=== PATIENT | male | born 1950 | race Caucasian/White ===

== ENCOUNTER 2017-11-01 18:40 | Inpatient (IN) | payer OTHER ==
[~2017-11-01] VITALS: Ht 170.2 cm; Wt 96.6 kg
[2017-11-01 18:41] VITALS: BP 136/73
[2017-11-01] MEDS ORDERED: IPRATROPIU0.2 MG/1 M INH (18:45)
[2017-11-01] MEDS ORDERED: NOVOLOG100 UNIT/1 SUBQ (18:46)
[2017-11-01] MEDS ORDERED: LANTIS SUBQ (18:46)
[2017-11-01] MEDS ORDERED: TOPROL XL25 MG PO (18:46)
[2017-11-01] MEDS ORDERED: ZESTRIL5 MG PO (18:46)
[2017-11-01] MEDS ORDERED: LASIX 40 MG TAB40 M2 PO (18:46)
[2017-11-01] MEDS ORDERED: PLAVIX 75 MG TA75 M1 PO (18:46)
[2017-11-01] MEDS ORDERED: COMBIVENT RESPIM4 GM INH (18:47)
[2017-11-01] MEDS ORDERED: SPIRIVA INH (18:47)
[2017-11-01] MEDS ORDERED: FLOVENT HFA 4444 MCG INH (18:47)
[2017-11-01 19:36] LABS: HEMATOCRIT 40.3 % (42.0-52.0); HEMOGLOBIN 13.6 gm/dL (14.0-18.0); MCH 29.9 pg (26.0-34.0); MCHC 33.7 g/dL (28.0-37.0); MCV 88.8 fL (80.0-100.0); MPV 7.6 fl. (7.2-11.1); NUCLEATED RBCS 0 /100WBC; PLATELET COUNT* 260 thou/uL (150-400); RBC 4.54 mil/uL (4.50-6.00); RDW-CV 14.3 % (10.5-14.5); WBC 18.2 thou/uL (4.0-11.0)
[2017-11-01 20:03] LABS: ABSOLUTE LYMPHOCYTES 0.5 thou/uL (0.8-5.3); ABSOLUTE MONOCYTES 0.4 thou/uL (0.0-1.2); ABSOLUTE NEUTROPHILS 17.3 thou/uL (1.6-8.1); PLATELET ESTIMATE ADEQUATE
[2017-11-01 20:16] LABS: CREATININE 1.8 mg/dL (0.6-1.3); POTASSIUM 4.1 mmol/L (3.5-5.1)
[2017-11-01 20:17] LABS: CALCIUM 8.4 mg/dL (8.5-10.1)
[2017-11-01 20:23] LABS: TOTAL BILIRUBIN 0.8 mg/dL (<0.1-1.0)
[2017-11-01 20:24] LABS: ALBUMIN 3.1 g/dL (3.4-5.0); TOTAL PROTEIN 6.8 g/dL (6.4-8.2)
[2017-11-01 20:43] LABS: APTT 32.9 Seconds (25.0-31.3); PROTIME 10.2 Seconds (9.20-11.50)
[2017-11-01 23:35] VITALS: BP 144/75
[2017-11-02 03:30] VITALS: BP 167/82
[2017-11-02 10:30] LABS: CALCIUM 8.1 mg/dL (8.5-10.1); CREATININE 1.7 mg/dL (0.6-1.3); MAGNESIUM 1.6 mg/dL (1.8-2.4); POTASSIUM 3.7 mmol/L (3.5-5.1)
[2017-11-02 10:40] LABS: HEMATOCRIT 37.6 % (42.0-52.0); HEMOGLOBIN 12.7 gm/dL (14.0-18.0); MCH 30.2 pg (26.0-34.0); MCHC 33.8 g/dL (28.0-37.0); MCV 89.4 fL (80.0-100.0); MPV 7.5 fl. (7.2-11.1); NUCLEATED RBCS 0 /100WBC; PLATELET COUNT* 242 thou/uL (150-400); RDW-CV 14.8 % (10.5-14.5); WBC 16.8 thou/uL (4.0-11.0)
--- NOTE | 2017-11-02 10:58 | EKG ---
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: maximo : 1950 Requested By: Irma Elder Order Number: [id number] MD: Calos Hutchinson Measurements Intervals [place] Rate: 112 P: 118 VA: 177 QRS: -22 QRSD: 101 T: 87 QT: 360 QTc: 492 Interpretive Statements Sinus tachycardia Low voltage, extremity and precordial leads Anteroseptal infarct, old Nonspecific T abnormalities, lateral leads No previous ECG available for comparison Electronically Signed On 11-02-2017 10:58:11 CDT by Calos Hutchinson [email or web address] <ELECTRONICALLY SIGNED> By: Calos Hutchinson MD, [facility] 11/02/17 1058 35 35 Calos Hutchinson MD, [facility] /EPI
[2017-11-02 11:08] LABS: ABSOLUTE MONOCYTES 0.2 thou/uL (0.0-1.2); ABSOLUTE NEUTROPHILS 15.6 thou/uL (1.6-8.1); METAMYELOCYTES 1 %; PLATELET ESTIMATE ADEQUATE
[2017-11-02 15:00] VITALS: BP 140/71
[2017-11-02 15:08] VITALS: BP 137/69
[2017-11-03 02:11] LABS: GLYCOHEMOGLOBIN (HGB A1C) 9.1 % (4.8-5.6)
[2017-11-03 05:04] LABS: HEMATOCRIT 36.5 % (42.0-52.0); HEMOGLOBIN 12.2 gm/dL (14.0-18.0); MCH 30.4 pg (26.0-34.0); MCHC 33.4 g/dL (28.0-37.0); MCV 91.1 fL (80.0-100.0); MPV 8.1 fl. (7.2-11.1); RBC 4.01 mil/uL (4.50-6.00); RDW-CV 14.3 % (10.5-14.5)
[2017-11-03 05:23] LABS: CALCIUM 8.1 mg/dL (8.5-10.1); CREATININE 1.8 mg/dL (0.6-1.3); MAGNESIUM 1.8 mg/dL (1.8-2.4); POTASSIUM 3.8 mmol/L (3.5-5.1)
[2017-11-03 08:05] VITALS: BP 128/75
[2017-11-04] VITALS: BP 176/91
[2017-11-04 02:46] LABS: HEMATOCRIT 35.7 % (42.0-52.0); MCH 30.6 pg (26.0-34.0); MCHC 33.7 g/dL (28.0-37.0); MCV 90.9 fL (80.0-100.0); MPV 8.1 fl. (7.2-11.1); RBC 3.93 mil/uL (4.50-6.00); RDW-CV 14.2 % (10.5-14.5); WBC 10.1 thou/uL (4.0-11.0)
[2017-11-04 02:58] LABS: ALBUMIN 2.3 g/dL (3.4-5.0); CALCIUM 7.8 mg/dL (8.5-10.1); CREATININE 2.1 mg/dL (0.6-1.3); POTASSIUM 3.5 mmol/L (3.5-5.1); TOTAL BILIRUBIN 0.3 mg/dL (<0.1-1.0); TOTAL PROTEIN 5.4 g/dL (6.4-8.2)
[2017-11-04 07:30] VITALS: BP 118/66
[2017-11-04 15:48] VITALS: BP 145/100
[2017-11-04 19:55] VITALS: BP 118/30
[2017-11-05 04:11] LABS: ABSOLUTE EOSINOPHILS 0.1 thou/uL (0.0-0.7); ABSOLUTE LYMPHOCYTES 1.1 thou/uL (0.8-5.3); ABSOLUTE MONOCYTES 0.6 thou/uL (0.0-1.2); ABSOLUTE NEUTROPHILS 5.5 thou/uL (1.6-8.1); BASOPHILS 0.6 %; EOSINOPHILS 1.1 %; HEMATOCRIT 33.1 % (42.0-52.0); HEMOGLOBIN 11.3 gm/dL (14.0-18.0); LYMPHOCYTES 14.9 %; MCH 30.8 pg (26.0-34.0); MCHC 34.2 g/dL (28.0-37.0); MONOCYTES 7.6 %; MPV 7.8 fl. (7.2-11.1); NUCLEATED RBCS 0 /100WBC; PLATELET COUNT* 276 thou/uL (150-400); POLYS 75.8 %; RBC 3.68 mil/uL (4.50-6.00); RDW-CV 14.3 % (10.5-14.5); WBC 7.3 thou/uL (4.0-11.0)
[2017-11-05 04:42] LABS: CALCIUM 7.6 mg/dL (8.5-10.1); CREATININE 1.9 mg/dL (0.6-1.3); POTASSIUM 3.6 mmol/L (3.5-5.1)
[2017-11-05 07:35] VITALS: BP 133/89; BP 172/55
--- NOTE | 2017-11-05 07:57 | CON ---
[address] [address] CONSULTATION Name: LAURIE MUIR JR Room: [address] IN .R.#: [id number] Admission: 11/01/17 Attend Phys: Hesham Dockery MD Discharge: Date of : 46 Report #: [id number] THIS REPORT FOR: //name// CC: [facility] physician/PCP Hesham Dockery DATE OF SERVICE: 11/02/2017 INFECTIOUS DISEASE CONSULTATION ATTENDING PHYSICIAN: Hesham Dockery M.D. REASON FOR EVALUATION: Left upper extremity skin and soft tissue infection with severe cellulitis. HISTORY OF PRESENT ILLNESS: Chart reviewed, patient examined. This is a 67-year-old gentleman, with diabetes mellitus, who without antecedent injury noted over the course of the last 2 weeks, had increasing inflammation, particularly swelling, redness, pain associated with his left upper extremity. He does admit to some low-grade temperature elevations, some chills, which was confirmed during his stay in the Emergency Room. He has had some mild anorexia, some loose stools. Blood sugars have been markedly elevated. ALLERGIES: TO STATINS, CODEINE, METFORMIN, ROSIGLITAZONE, ROSUVASTATIN AND SITAGLIPTIN. MEDICATIONS: Include insulin glargine, insulin lispro, furosemide, budesonide, ipratropium inhaler, morphine sulfate, vancomycin, Zosyn, clopidogrel, lisinopril. PAST MEDICAL HISTORY: Diabetes mellitus, some COPD with emphysematous component, history of chronic back pain, venous stasis insufficiency. SOCIAL HISTORY: Smokes a pack a day. No ethanol. FAMILY HISTORY: Noncontributory. REVIEW OF SYSTEMS: As above. PHYSICAL EXAMINATION: GENERAL: He is somewhat lethargic. He is in moderate distress secondary to the pain. He is very protective of his arm, no particular movement, appears somewhat chronically ill. VITAL SIGNS: Temperature 99.4, T-max more recently 99.1; pulse 99, respirations 20, blood pressure is 137/69. SKIN: Warm, [place] [address] CONSULTATION Name: LAURIE MUIR JR Room: [address] IN [facility]#: [id number] Admission: 11/01/17 Attend Phys: Hesham Dockery MD Discharge: Date of : 46 Report #: [id number] HEENT: Unremarkable. LUNGS: Scattered coarse breath sounds, I think it is chronic. HEART: Tachycardic, regular. I do not appreciate a murmur. ABDOMEN: Soft, nontender. EXTREMITIES: Left upper extremity has marked inflammatory changes, particularly distally. He is exquisitely tender to even light touch over the dorsum of the hand. There are some superficial abrasion lesions. GENITOURINARY: Deferred. RECTAL: Deferred. LABORATORY DATA: Chest x-ray, mild chronic lung changes, no acute process. Troponin less than 0.06. Lactic acid of 2.9 initially, repeat was 1.8. CBC: White count 18.2, H and H 13.6 and 40.3, platelets of 260, does have lymphocytopenia. Electrolytes: Sodium 134, potassium 4.1, chloride 99, bicarbonate is 25, anion gap of 10, BUN and creatinine 21 and 1.8, glucose of 384 on that draw. LFTs unremarkable. Albumin of 3.1, total protein 6.8, estimated GFR of 38. PT of 10.2, INR of 1.0. Blood cultures sterile thus far. TSH 2.598. Repeat white count of 16.8. ASSESSMENT: Left upper extremity skin and soft tissue infection with cellulitis. These are new marked changes noted, presumably skin and soft tissue outside the end type progression, presume staph or strep etiology. We will continue empiric therapy at this point. At some point, would like to add some compression at this point probably limited to elevation. We will await results. May need imaging. If he can localize this, perhaps will have a drainable focus of infection at some point. <ELECTRONICALLY SIGNED> By: Baltazar Holland MD 11/05/17 0757 1414 0003Johse Holland MD /nt
[2017-11-05 20:55] VITALS: BP 143/49
[2017-11-06 06:03] LABS: CALCIUM 7.8 mg/dL (8.5-10.1); CREATININE 1.7 mg/dL (0.6-1.3); MAGNESIUM 1.9 mg/dL (1.8-2.4); POTASSIUM 4.1 mmol/L (3.5-5.1)
[2017-11-06 07:30] VITALS: BP 204/99
[2017-11-06] MEDS ORDERED: LEVAQUIN 500 M500 M1 PO (11:29)
[2017-11-06 14:14] VITALS: BP 204/99
== END 2017-11-06 15:32 | disposition home or self-care (01) | DRG 871 ==
LOC: M.ERS 18:40 → M.TBA-ER 20:39 → M.3W 11-02 15:22
PROVIDERS: Family Medicine; Internal Medicine Infectious Disease; Nurse Practitioner Family; ADMIT Internal Medicine
PROC: 02HV33Z Insertion of Infusion Device into Superior Vena Cava, Percutaneous Approach (ICD-10-PCS; principal; 2017-11-03)
DX: A41.9 Sepsis, unspecified organism (principal); N17.0 Acute kidney failure with tubular necrosis; L03.114 Cellulitis of left upper limb; J96.11 Chronic respiratory failure with hypoxia; E44.1 Mild protein-calorie malnutrition; J44.9 Chronic obstructive pulmonary disease, unspecified; F17.210 Nicotine dependence, cigarettes, uncomplicated; N18.3 Chronic kidney disease, stage 3 (moderate); E11.22 Type 2 diabetes mellitus with diabetic chronic kidney disease; R13.10 Dysphagia, unspecified; E66.9 Obesity, unspecified; Z68.33 Body mass index [BMI] 33.0-33.9, adult; Z91.14 Patient's other noncompliance with medication regimen; Z99.81 Dependence on supplemental oxygen; Z79.4 Long term (current) use of insulin; Z79.02 Long term (current) use of antithrombotics/antiplatelets; Z79.51 Long term (current) use of inhaled steroids; Z79.899 Other long term (current) drug therapy; Z88.5 Allergy status to narcotic agent; Z88.8 Allergy status to other drugs, medicaments and biological substances

== ENCOUNTER 2017-11-15 16:59 | Inpatient (IN) | payer OTHER ==
[~2017-11-15] VITALS: Ht 170.2 cm; Wt 99.8 kg
[~2017-11-15 16:59] MED LIST: COMBIVENT RESPIM4 GM INH; FLOVENT HFA 4444 MCG INH; IPRATROPIU0.2 MG/1 M INH; LANTIS SUBQ; LASIX 40 MG TAB40 M2 PO; LEVAQUIN 500 M500 M1 PO; NOVOLOG100 UNIT/1 SUBQ; PLAVIX 75 MG TA75 M1 PO; SPIRIVA INH; TOPROL XL25 MG PO; ZESTRIL5 MG PO
[2017-11-15 17:06] VITALS: BP 141/81
[2017-11-15] MEDS ORDERED: COMBIVENT INH (17:25)
[2017-11-15] MEDS ORDERED: ZETIA10 MG PO (17:29)
[2017-11-15] MEDS ORDERED: NITROGLYCERIN0.4 MG SUBLING (17:32)
[2017-11-15] MEDS ORDERED: ADVAIR 500-501 EACH INH (17:32)
[2017-11-15 18:05] LABS: ANION GAP 8 mmol/L (7-16); BUN 39 mg/dL (7-18); CALCIUM 8.7 mg/dL (8.5-10.1); CHLORIDE 101 mmol/L (98-107); CO2 26 mmol/L (21-32); CREATININE 2.9 mg/dL (0.6-1.3); GLUCOSE 329 mg/dL (70-99); POTASSIUM 4.2 mmol/L (3.5-5.1); SODIUM 135 mmol/L (136-145)
[2017-11-15 18:16] LABS: ALBUMIN 3.1 g/dL (3.4-5.0); ALKALINE PHOSPHATASE 94 U/L (46-116); NT-PRO BRAIN NAT PEPTIDE 2082 pg/mL (<300); SGOT 17 U/L (15-37); SGPT 17 U/L (30-65); TOTAL BILIRUBIN 0.1 mg/dL (<0.1-1.0); TOTAL PROTEIN 6.7 g/dL (6.4-8.2); TROPONIN-I LEVEL <0.06 ng/mL (<0.06)
[2017-11-15 18:47] LABS: URINE BILIRUBIN NEGATIVE (Negative); URINE BLOOD NEGATIVE (Negative); URINE CLARITY CLEAR; URINE COLOR YELLOW; URINE GLUCOSE-RANDOM 1+ (Negative); URINE KETONES NEGATIVE (Negative); URINE LEUKOCYTES-REFLEX NEGATIVE (Negative); URINE NITRITE-REFLEX NEGATIVE (Negative); URINE PROTEIN NEGATIVE (Negative); URINE SPECIFIC GRAVITY 1.015 (1.005-1.030); URINE UROBILINOGEN 0.2 E.U./dl (0.2-1.0)
[2017-11-15 19:00] LABS: ABSOLUTE BASOPHILS 0.1 thou/uL (0.0-0.2); ABSOLUTE EOSINOPHILS 0.3 thou/uL (0.0-0.7); ABSOLUTE LYMPHOCYTES 1.8 thou/uL (0.8-5.3); ABSOLUTE MONOCYTES 0.8 thou/uL (0.0-1.2); ABSOLUTE NEUTROPHILS 9.2 thou/uL (1.6-8.1); BASOPHILS 0.9 %; EOSINOPHILS 2.5 %; HEMOGLOBIN 12.5 gm/dL (14.0-18.0); LYMPHOCYTES 14.6 %; MCH 30.1 pg (26.0-34.0); MCHC 33.7 g/dL (28.0-37.0); MCV 89.2 fL (80.0-100.0); MONOCYTES 6.2 %; MPV 7.6 fl. (7.2-11.1); NUCLEATED RBCS 0 /100WBC; PLATELET COUNT* 392 thou/uL (150-400); POLYS 75.8 %; RBC 4.15 mil/uL (4.50-6.00); RDW-CV 13.8 % (10.5-14.5); WBC 12.2 thou/uL (4.0-11.0)
[2017-11-15 19:06] LABS: APTT 26.1 Seconds (25.0-31.3); PROTIME 9.9 Seconds (9.20-11.50)
[2017-11-15 19:32] VITALS: BP 124/66
[2017-11-15 20:34] VITALS: BP 112/68
[2017-11-15 23:35] VITALS: BP 97/50
[2017-11-16 03:53] VITALS: BP 122/77
[2017-11-16 04:54] LABS: ANION GAP 6 mmol/L (7-16); BUN 41 mg/dL (7-18); CALCIUM 9.2 mg/dL (8.5-10.1); CHLORIDE 103 mmol/L (98-107); CO2 31 mmol/L (21-32); CREATININE 2.9 mg/dL (0.6-1.3); GLUCOSE 216 mg/dL (70-99); POTASSIUM 4.4 mmol/L (3.5-5.1); SODIUM 140 mmol/L (136-145); TROPONIN-I LEVEL <0.06 ng/mL (<0.06)
[2017-11-16 08:00] VITALS: BP 122/69
--- NOTE | 2017-11-16 10:55 | EKG ---
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 RIGGS : 1950 Requested By: Andrae Greco Order Number: [id number] MD: Tor Miller Measurements Intervals [place] Rate: 99 P: 41 GA: 184 QRS: -8 QRSD: 109 T: 119 QT: 401 QTc: 515 Interpretive Statements Sinus rhythm Low voltage, extremity and precordial leads Consider anterior infarct Nonspecific T abnormalities, lateral leads Prolonged QT interval Compared to ECG 11/01/2017 19:36:50 Prolonged QT interval now present Sinus tachycardia no longer present Myocardial infarct finding still present T-wave abnormality still present Electronically Signed On 11-16-2017 10:54:51 CDT by Tor Miller [email or web address] <ELECTRONICALLY SIGNED> By: Tor Miller MD, [facility] 11/16/17 1054 1715 1715 Tor Miller MD, [facility] /EPI
--- NOTE | 2017-11-16 10:58 | EKG ---
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: : 1950 Requested By: Pascual Valladares Order Number: [id number] MD: Tor Miller Measurements Intervals [place] Rate: 85 P: 55 DE: 224 QRS: -24 QRSD: 102 T: 130 QT: 392 QTc: 467 Interpretive Statements Sinus rhythm Prolonged DE interval Low voltage, extremity and precordial leads Consider anterior infarct Nonspecific T abnormalities, lateral leads Baseline wander in lead(s) V4 Compared to ECG 11/01/2017 19:36:50 First degree AV block now present Sinus tachycardia no longer present Myocardial infarct finding still present T-wave abnormality still present Electronically Signed On 11-16-2017 10:58:07 CDT by Tor Miller [email or web address] <ELECTRONICALLY SIGNED> By: Tor Miller MD, [facility] 11/16/17 1058 Tor Miller MD, [facility] /EPI
[2017-11-16 12:00] VITALS: BP 120/56
[2017-11-16 16:00] VITALS: BP 137/66
[2017-11-16 20:00] VITALS: BP 118/63
[2017-11-17] VITALS: BP 124/63
[2017-11-17 03:41] VITALS: BP 141/74
[2017-11-17 06:00] LABS: HEMATOCRIT 31.6 % (42.0-52.0); HEMOGLOBIN 10.7 gm/dL (14.0-18.0); MCH 30.5 pg (26.0-34.0); MCHC 33.8 g/dL (28.0-37.0); MPV 7.8 fl. (7.2-11.1); RBC 3.51 mil/uL (4.50-6.00); RDW-CV 13.8 % (10.5-14.5); WBC 8.8 thou/uL (4.0-11.0)
[2017-11-17 06:07] LABS: CALCIUM 8.3 mg/dL (8.5-10.1); CREATININE 2.5 mg/dL (0.6-1.3); MAGNESIUM 1.9 mg/dL (1.8-2.4); POTASSIUM 3.3 mmol/L (3.5-5.1)
[2017-11-17 08:15] VITALS: BP 116/59
[2017-11-17 12:16] VITALS: BP 126/64
[2017-11-17 16:02] VITALS: BP 122/65
[2017-11-17 20:00] VITALS: BP 126/68
[2017-11-18] VITALS (7 sets, daily range): BP systolic 96–137; BP diastolic 45–68
[2017-11-18 02:08] LABS: IgA 109 mg/dL (61-437); IgG 481 mg/dL (700-1600); IgM 275 mg/dL (20-172)
[2017-11-18 05:09] LABS: HEMATOCRIT 30.4 % (42.0-52.0); HEMOGLOBIN 10.6 gm/dL (14.0-18.0); MCHC 34.7 g/dL (28.0-37.0); MCV 89.3 fL (80.0-100.0); MPV 7.8 fl. (7.2-11.1); RBC 3.41 mil/uL (4.50-6.00); RDW-CV 13.7 % (10.5-14.5); WBC 8.3 thou/uL (4.0-11.0)
[2017-11-18 05:28] LABS: CALCIUM 8.9 mg/dL (8.5-10.1); CREATININE 2.2 mg/dL (0.6-1.3); MAGNESIUM 2.2 mg/dL (1.8-2.4); POTASSIUM 3.6 mmol/L (3.5-5.1)
[2017-11-18 17:07] LABS: KAPPA FREE LIGHT CHAINS 59.6 mg/L (3.3-19.4); LAMBDA FREE LIGHT CHAINS 22.4 mg/L (5.7-26.3)
[2017-11-19 04:00] VITALS: BP 125/65
[2017-11-19 05:58] LABS: HEMATOCRIT 33.8 % (42.0-52.0); HEMOGLOBIN 11.5 gm/dL (14.0-18.0); MCH 30.4 pg (26.0-34.0); MCV 89.6 fL (80.0-100.0); MPV 7.7 fl. (7.2-11.1); RBC 3.77 mil/uL (4.50-6.00); RDW-CV 13.9 % (10.5-14.5); WBC 9.1 thou/uL (4.0-11.0)
[2017-11-19 06:13] LABS: CALCIUM 8.4 mg/dL (8.5-10.1); CREATININE 2.1 mg/dL (0.6-1.3); MAGNESIUM 2.1 mg/dL (1.8-2.4)
[2017-11-19 08:00] VITALS: BP 113/44
[2017-11-19 12:00] VITALS: BP 128/65
[2017-11-19 13:06] LABS: ANTI-DNA SCREEN 1 IU/mL (0-9); ANTI-RNP 4.5 AI (0.0-0.9)
--- NOTE | 2017-11-19 13:08 | 2DMMODE ---
[place] [address] 2 D/M-MODE ECHOCARDIOGRAM Name: LAURIE MUIR JR Room: [address] IN [facility]#: [id number] Admission: 11/15/17 Attend Phys: Pascual Valladares Discharge: Date of : 46 Date of Service: 11/16/17 1343 Report #: [id number] THIS REPORT FOR: //name// APPROVED REPORT Study performed: 11/16/2017 10:36:38 EXAM: Comprehensive 2D, Doppler, and color-flow Echocardiogram Patient Location: Bedside BSA: 2.10 HR: 89 bpm BP: 122/69 mmHg Other Information Study Quality: Technically Limited Technically limited study due to inability to position patient. Indications Congestive Heart Failure Dyspnea Left Ventricle Left ventricle is borderline dilated. There is moderate diffuse hypokinesis of left ventricular wall motion There is normal left ventricular wall thickness. Left ventricular systolic function is moderately decreased. LVEF is 35%. Grade I - abnormal relaxation pattern. Right Ventricle The right ventricle is normal size. The right ventricular systolic function is normal. Atria The left atrium size is normal. The right atrium size is normal. Aortic Valve Mild aortic valve sclerosis. No aortic regurgitation is present. There is no aortic valvular stenosis. Mitral Valve The mitral valve is normal in structure. There is no mitral valve regurgitation noted. No evidence of mitral valve stenosis. [address] [address] 2 D/M-MODE ECHOCARDIOGRAM Name: WOODLAURIE Kevin EDMONDS Room: [address] IN .R.#: [id number] Admission: 11/15/17 Attend Phys: Pascual Valladares Discharge: Date of : 46 Date of Service: 11/16/17 1343 Report #: [id number] Tricuspid Valve The tricuspid valve is normal in structure. There is no tricuspid valve regurgitation noted. Pulmonic Valve The pulmonary valve is normal in structure. There is no pulmonic valvular regurgitation. Great Vessels The aortic root is normal in size. IVC is not visualized. Pericardium There is no pericardial effusion. <Conclusion> Left ventricle is borderline dilated. There is normal left ventricular wall thickness. Left ventricular systolic function is moderately decreased. LVEF is 35%. Grade I - abnormal relaxation pattern. The right ventricle is normal size. The left atrium size is normal. Mild aortic valve sclerosis. No aortic regurgitation is present. There is no aortic valvular stenosis. The mitral valve is normal in structure. The tricuspid valve is normal in structure. There is no pericardial effusion. There is moderate diffuse hypokinesis of left ventricular wall motion <ELECTRONICALLY SIGNED> By: Tor Miller MD, [facility] 11/16/17 1343 1343 1343 Tor Miller MD, [facility] /INF
[2017-11-19 20:00] VITALS: BP 133/76
[2017-11-20] VITALS: BP 176/68
[2017-11-20 04:00] VITALS: BP 146/63
[2017-11-20 05:33] LABS: ABSOLUTE BASOPHILS 0.1 thou/uL (0.0-0.2); ABSOLUTE EOSINOPHILS 0.4 thou/uL (0.0-0.7); ABSOLUTE LYMPHOCYTES 1.6 thou/uL (0.8-5.3); ABSOLUTE MONOCYTES 0.8 thou/uL (0.0-1.2); ABSOLUTE NEUTROPHILS 5.3 thou/uL (1.6-8.1); BASOPHILS 0.8 %; EOSINOPHILS 4.7 %; HEMATOCRIT 32.3 % (42.0-52.0); LYMPHOCYTES 19.3 %; MCH 30.7 pg (26.0-34.0); MCHC 34.2 g/dL (28.0-37.0); MCV 89.8 fL (80.0-100.0); MONOCYTES 9.6 %; MPV 8.1 fl. (7.2-11.1); NUCLEATED RBCS 0 /100WBC; PLATELET COUNT* 229 thou/uL (150-400); POLYS 65.6 %; RBC 3.59 mil/uL (4.50-6.00); RDW-CV 13.9 % (10.5-14.5); WBC 8.1 thou/uL (4.0-11.0)
[2017-11-20 05:59] LABS: ALBUMIN 3.1 g/dL (3.4-5.0); CALCIUM 8.3 mg/dL (8.5-10.1); CREATININE 2.2 mg/dL (0.6-1.3); PHOSPHORUS* 4.4 mg/dL (2.5-4.9); POTASSIUM 4.1 mmol/L (3.5-5.1)
[2017-11-20 08:00] VITALS: BP 121/60
--- NOTE | 2017-11-20 09:29 | CON ---
[address] [address] CONSULTATION Name: WOODLAURIE Brown Room: [address] IN M.R.#: [id number] Admission: 11/15/17 Attend Phys: Tan Vázquez Discharge: Date of : 46 Report #: [id number] THIS REPORT FOR: //name// CC: [facility] physician/PCP Pascual Valladares DATE OF SERVICE: 11/16/2017 Nephrology Consultation CONSULTING PHYSICIAN: Lalo Toledo MD REASON FOR NEPHROLOGY CONSULTATION: Acute kidney injury on chronic kidney disease, stage 3. REASON FOR ADMISSION: Weight gain, lower extremity swelling, left arm swelling. HISTORY OF PRESENT ILLNESS: This is a 67-year-old male who has past medical history of chronic kidney disease stage 3 with baseline creatinine around 1.8 to 1.9, history of possible congestive heart failure, but ejection fraction is not known history of hypertension, diabetes type 2, COPD on home oxygen of 3 L, who was recently admitted to [facility] for left arm erythema and cellulitis and was treated and discharged on Levaquin about a week ago. He came back again yesterday because his left arm was more swollen and his lower extremities were more swollen and they were also erythematous. He did have low blood pressure at one point of 97/50, but otherwise blood pressures have been okay. He is not taking any SAM inhibitor. His creatinine was found to be 2.9 on admission and it was 2.9 even today. He was started on treatment for possible congestive heart failure exacerbation with Lasix drip at 10 mg an hour and also started on treatment for cellulitis with vancomycin. Cardiology has also been called to evaluate and the patient is going to get an echocardiogram. He does take Lasix at home at 40 mg once a day. Bladder scan was just checked and it showed 540 mL of urine. The patient has also been taking ibuprofen about 2-3 tablets a day in the last 1 week because of pain in his left arm. He did not report any history of any kidney stones. REVIEW OF SYSTEMS: As mentioned in history of present illness, the patient is also retaining urine and is weak. Other review of systems done and they were negative. ALLERGIES: Include CODEINE, METFORMIN, ROSIGLITAZONE, ROSUVASTATIN, SITAGLIPTIN, and STATINS. HOME MEDICATIONS: Include Levaquin, ipratropium, clopidogrel, Lasix 40 mg once a day, metoprolol, insulin NovoLog, , nitroglycerin, ipratropium albuterol, [place] [address] CONSULTATION Name: WOODLAURIE Kevin EDMONDS Room: [address]#: [id number] Admission: 11/15/17 Attend Phys: Tan Vázquez Discharge: Date of : 46 Report #: [id number] fluticasone, salmeterol, Lantus 40 units at dinnertime, tiotropium. PAST MEDICAL AND SURGICAL HISTORY: Include diabetes type 2, COPD, emphysema, spinal issues, obesity, chronic venous stasis, chronic hypoxemic respiratory failure, cardiac stents times 2. FAMILY HISTORY: No history of any kidney disease in the family that he knows of. SOCIAL HISTORY: He lives by himself and his daughter helps him with cooking. He is a current every day smoker, smokes about 1 pack a day and is smoking for 60 years. No history of alcohol use or drug use reported. PHYSICAL EXAMINATION: VITAL SIGNS: Blood pressure is 120/56, pulse ox is 97% on 3 L nasal cannula, temperature is 37.3, and pulse rate is 89, respiratory rate is 20. GENERAL: He is awake, alert, not necessarily in a nice mood, oriented times 3, anxious. HEAD, EARS, EYES, NOSE, AND THROAT: Mucous membranes are moist. NECK: There is no JVD. CHEST: There are bilateral diminished and distant breath sounds and there are some basilar crackles present posteriorly. CARDIOVASCULAR: S1, S2 normal. No murmurs. ABDOMEN: Soft. It is obese, not distended, and not tender. Bowel sounds are present. EXTREMITIES: There is 1+ edema in his right upper extremity. There is wrinkling of skin in bilateral upper extremities and lower extremities have 2+ edema. There is also erythema extending to mid calf, middle of his lower legs bilaterally and there is some tenderness also in bilateral lower extremities. NEUROLOGICAL: Gross neurological function is intact. PSYCHIATRIC: Mood and affect seems to be normal. LABORATORY DATA: WBC 12.2, hemoglobin is 12.5. Sodium is 140, CO2 is 31 and creatinine is 2.9. His other labs are reviewed. IMAGING: Chest x-ray was reviewed. ASSESSMENT: 1. Acute kidney injury on chronic kidney disease stage 3, likely because of use of nonsteroidal anti-inflammatory drugs, hypotension, urinary retention and Lasix could have contributed. Baseline creatinine is 1.8-1.9, but creatinine is 2.9 now. Urine is pretty bland with no protein, no blood. We will also check serum immunofixation, serum kappa lambda light chain ratio. We will [place] [address] CONSULTATION Name: LAURIE MUIR JR Room: [address] IN [facility]#: [id number] Admission: 11/15/17 Attend Phys: Tan Vázquez Discharge: Date of : 46 Report #: [id number] 2. Urinary retention. The patient is retaining 540 mL of urine. 3. Hypertension, blood pressure is currently controlled. SAM inhibitor is on hold. 4. Possible congestive heart failure, ejection fraction is being checked. 5. Lower extremity edema, also has evidence of likely cellulitis, on treatment for that with vancomycin. 6. Diabetes type 2. PLAN: 1. Monitor vancomycin level carefully and if level is more than 20, hold vancomycin. 2. Hold off on Lasix for now, the patient needs a Corley catheter because he is retaining 540 mL of urine, the patient's daughter is going to talk to the patient so that he can agree for Corley catheter. 3. Continue to try to maintain a mean arterial pressure of 65 to 70. 4. We will check renal ultrasound. 5. Acute kidney injury, can also be possibly because of acute interstitial nephritis developed to fluoroquinolone, which he was discharged on. If creatinine does not get better with all these above interventions, he may need a biopsy before starting some steroids if he does have AIN. 6. We will await echo report. 7. Avoid NSAIDs, nephrotoxic agents, SAM inhibitor, ARB and IV contrast and we will continue to follow along with you. I discussed plan with the patient, the patient's daughter, as well as the patient's nurse, Fritz, and we will continue to follow along with you. <ELECTRONICALLY SIGNED> By: Reyna Machado MD 11/20/17 0929 1615 0203Amitmelanie Machado MD /nt
[2017-11-20 12:01] VITALS: BP 134/70
[2017-11-20] MEDS ORDERED: COREG6.25 MG PO (14:25)
[2017-11-20] MEDS ORDERED: DOXYCYCLINE 10100 MG PO (14:27)
[2017-11-20 15:35] VITALS: BP 134/70
== END 2017-11-20 16:55 | disposition home or self-care (01) | DRG 871 ==
LOC: M.ERS 16:59 → M.2W 18:25 → M.TBA-ER 18:25 → M.2W 20:10
PROVIDERS: Emergency Medicine Emergency Medical Services; Family Medicine; Internal Medicine; ADMIT Internal Medicine
PROC: 02HV33Z Insertion of Infusion Device into Superior Vena Cava, Percutaneous Approach (ICD-10-PCS; principal; 2017-11-16)
DX: A41.9 Sepsis, unspecified organism (principal); N17.0 Acute kidney failure with tubular necrosis; I50.43 Acute on chronic combined systolic (congestive) and diastolic (congestive) heart failure; L03.114 Cellulitis of left upper limb; I13.0 Hypertensive heart and chronic kidney disease with heart failure and stage 1 through stage 4 chronic kidney disease, or unspecified chronic kidney disease; J96.11 Chronic respiratory failure with hypoxia; E44.1 Mild protein-calorie malnutrition; E66.9 Obesity, unspecified; I87.8 Other specified disorders of veins; E11.22 Type 2 diabetes mellitus with diabetic chronic kidney disease; N18.3 Chronic kidney disease, stage 3 (moderate); F17.210 Nicotine dependence, cigarettes, uncomplicated; I95.9 Hypotension, unspecified; R33.9 Retention of urine, unspecified; I25.10 Atherosclerotic heart disease of native coronary artery without angina pectoris; E78.5 Hyperlipidemia, unspecified; Z60.2 Problems related to living alone; E87.6 Hypokalemia; I25.5 Ischemic cardiomyopathy; K59.00 Constipation, unspecified; T39.395A Adverse effect of other nonsteroidal anti-inflammatory drugs [NSAID], initial encounter; Z68.34 Body mass index [BMI] 34.0-34.9, adult; Z79.899 Other long term (current) drug therapy; Z79.4 Long term (current) use of insulin; Z88.6 Allergy status to analgesic agent; Z88.8 Allergy status to other drugs, medicaments and biological substances; Z99.81 Dependence on supplemental oxygen; Z95.5 Presence of coronary angioplasty implant and graft; Z91.14 Patient's other noncompliance with medication regimen; Z79.02 Long term (current) use of antithrombotics/antiplatelets; Y92.89 Other specified places as the place of occurrence of the external cause; Z98.1 Arthrodesis status; J44.9 Chronic obstructive pulmonary disease, unspecified

== ENCOUNTER 2018-01-02 11:41 | Emergency (ER) | payer MEDICARE, OTHER ==
[~2018-01-02] VITALS: Ht 170.2 cm; Wt 90.7 kg
[~2018-01-02 11:41] MED LIST changes: +ADVAIR 500-501 EACH INH; +COMBIVENT INH; +COREG6.25 MG PO; +DOXYCYCLINE 10100 MG PO; +NITROGLYCERIN0.4 MG SUBLING; +ZETIA10 MG PO
[2018-01-02] MEDS ORDERED: LOPRESSOR50 PO (11:56)
[2018-01-02] MEDS ORDERED: VITAMIN D1000 UNI1 PO (11:57)
[2018-01-02] MEDS ORDERED: LANTUS100 UNIT/M SUBQ (11:59)
[2018-01-02] MEDS ORDERED: AZITHROMYCIN 2250 MG PO (14:19)
[2018-01-02] MEDS ORDERED: PREDNISONE50 MG PO (14:19)
[2018-01-02 14:43] VITALS: BP 136/77
== END 2018-01-02 14:45 | disposition home or self-care (01) ==
LOC: M.ERS 11:41
DX: J44.1 Chronic obstructive pulmonary disease with (acute) exacerbation (principal); E11.9 Type 2 diabetes mellitus without complications; J44.9 Chronic obstructive pulmonary disease, unspecified; I11.0 Hypertensive heart disease with heart failure; I50.9 Heart failure, unspecified; Z95.5 Presence of coronary angioplasty implant and graft; E66.9 Obesity, unspecified; Z68.31 Body mass index [BMI] 31.0-31.9, adult; F17.210 Nicotine dependence, cigarettes, uncomplicated; Z88.5 Allergy status to narcotic agent; Z88.8 Allergy status to other drugs, medicaments and biological substances

== ENCOUNTER 2019-04-11 16:08 | Inpatient (IN) | payer OTHER ==
[~2019-04-11] VITALS: Ht 175.3 cm; Wt 110.4 kg
--- NOTE | ~2019-04-11 | CON ---
[address] [address] CONSULTATION Name: LAURIE MUIR Room: [address] IN .R.#: [id number] Admission: 04/11/19 Attend Phys: Eddi Feliciano MD Discharge: Date of : 46 Report #: [id number] THIS REPORT FOR: //name// cc: YOVANY OSMAN MD, BEVERLEY B. MD ~ THIS REPORT FOR: //name// CC: Eddi OSMAN DATE OF SERVICE: 04/12/2019 CARDIOLOGY CONSULTATION Thank you for allowing us to see the patient in cardiovascular assessment. HISTORY OF PRESENT ILLNESS: As you know, he is a 69-year-old male who presented with increasing dyspnea. He did note some vague chest and arm discomfort, but these were mild compared to the augmented dyspnea. He has chronic obstructive pulmonary disease with recent worsening in his shortness of breath by his description. The patient has been on inhaled bronchodilators as well as medicines directed at his diabetes, hyperlipidemia. There is a history of remote coronary stenting of which we do not have the specific records. Risk factors for coronary artery disease included diabetes, prior cigarette smoking, hypertension. PAST MEDICAL HISTORY: Remarkable predominantly for significant COPD requiring chronic supplemental oxygen and recent cellulitis of the left arm. As noted above, he has had prior stenting on multiple occasions. FAMILY HISTORY: Negative for premature coronary artery disease or sudden . SOCIAL HISTORY: He is and smokes a variable amount of cigarettes per day. REVIEW OF SYSTEMS: Remarkable for the following positives. CENTRAL NERVOUS SYSTEM: He notes some weakness without focal neurologic abnormalities. RESPIRATORY: He is chronically short of breath with exacerbation of late [place] [address] CONSULTATION Name: WOODLAURIE Kevin EDMONDS Room: [address] IN [facility].#: [id number] Admission: 04/11/19 Attend Phys: Eddi Feliciano MD Discharge: Date of : 46 Report #: [id number] CARDIAC: There is a history of coronary artery disease and prior stenting. ENDOCRINE: He has diabetes. HEMATOLOGIC AND LYMPHATIC: Has a history of mild anemia. ALLERGIC AND IMMUNOLOGIC: HE NOTES ALLERGIES TO CODEINE, METFORMIN, CRESTOR, STATIN, JANUVIA. PHYSICAL EXAMINATION: GENERAL: Reveals a dyspneic, tachypneic, overweight elderly male. VITAL SIGNS: Blood pressure is 130/70, heart rate is 81, respirations are 28 per minute. NECK: Jugular venous pressure is difficult to ascertain. CHEST: Reveals prolonged expiratory phase with the wheezing bilaterally. CARDIAC: Reveals a regular rhythm with a question of a paradoxically split S2. ABDOMEN: Obese. EXTREMITIES: Reveal modest lower extremity edema. IMPRESSION: 1. Exacerbation of chronic obstructive pulmonary disease. 2. Mild increase in troponin I, reflecting a small non-ST segment elevation myocardial infarction, most likely as a sequential values were approximately 1. 3. Obesity. 4. Diabetes. 5. History of prior coronary stenting. RECOMMENDATIONS: 1. Clear primary focus should be on the exacerbation of chronic obstructive pulmonary disease. 2. Would add aspirin. 3. Would avoid beta blockade in the context of his bronchoconstrictive pulmonary disease. 4. Given the current circumstance, anatomic evaluation by catheterization is not indicated at this point. This was discussed with Dr. Feliciano. Thank you for allowing us to see the patient in cardiovascular assessment. By: [id number] Miller MD, FACC /nt
[~2019-04-11 16:08] MED LIST changes: +AZITHROMYCIN 2250 MG PO; -LANTIS SUBQ; +LANTUS SUBQ; +LANTUS100 UNIT/M SUBQ; +LOPRESSOR50 PO; +PREDNISONE50 MG PO; +VITAMIN D1000 UNI1 PO
[2019-04-11 16:10] VITALS: BP 161/95
[2019-04-11 16:41] LABS: HEMATOCRIT 42.5 % (42.0-52.0); HEMOGLOBIN 13.9 gm/dL (14.0-18.0); MCH 27.6 pg (26.0-34.0); MCHC 32.7 g/dL (28.0-37.0); MCV 84.4 fL (80.0-100.0); MPV 8.1 fl. (7.2-11.1); NUCLEATED RBCS 0 /100WBC; PLATELET COUNT* 312 thou/uL (150-400); RBC 5.03 mil/uL (4.50-6.00); RDW-CV 15.2 % (10.5-14.5); WBC 14.7 thou/uL (4.0-11.0)
[2019-04-11 16:48] LABS: CALCIUM 8.3 mg/dL (8.5-10.1); CREATININE 2.6 mg/dL (0.6-1.3); POTASSIUM 5.8 mmol/L (3.5-5.1); PROTIME 10.2 Seconds (9.20-11.50)
[2019-04-11 16:52] LABS: BE -7.1 mmol/L (-2 to +3); PCO2 38.5 mmHg (35.0-45.0); PO2 121.8 mmHg (75.0-100.0); pH 7.304 (7.340-7.450)
[2019-04-11 16:58] LABS: ALBUMIN 3.4 g/dL (3.4-5.0); MAGNESIUM 2.1 mg/dL (1.8-2.4); TOTAL BILIRUBIN 0.3 mg/dL (<0.1-1.0); TOTAL PROTEIN 6.8 g/dL (6.4-8.2)
[2019-04-11 16:59] LABS: ABSOLUTE LYMPHOCYTES 1.8 thou/uL (0.8-5.3); ABSOLUTE MONOCYTES 0.4 thou/uL (0.0-1.2); ABSOLUTE NEUTROPHILS 12.5 thou/uL (1.6-8.1); ATYPICAL LYMPHS 4 %; PLATELET ESTIMATE ADEQUATE
--- NOTE | 2019-04-11 17:44 | EKG ---
[place] [address] ELECTROCARDIOGRAM REPORT Name: LAURIE MUIR JR Room: [place] [address] 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: : 1950 Requested By: Lorenzo Diggs Order Number: [id number] MD: Trenton Kendall Measurements Intervals [place] Rate: 109 P: 0 ID: 200 QRS: -17 QRSD: 127 T: 175 QT: 325 QTc: 438 Interpretive Statements Sinus tachycardia Nonspecific intraventricular conduction delay Anteroseptal infarct, age indeterminate Compared to ECG 11/16/2017 08:35:50 Intraventricular conduction delay now present Sinus rhythm no longer present First degree AV block no longer present T-wave abnormality no longer present Myocardial infarct finding still present Electronically Signed On 04-11-2019 17:43:42 ASSISTANT NEWS DIRECTOR by Trenton Kendall [email or web address] <ELECTRONICALLY SIGNED> By: Trenton Kendall MD, [facility] 04/11/19 1743 1613 161 Trenton Kendall MD, [facility] /EPI
--- NOTE | 2019-04-11 17:52 | NUR ---
PER DR. RAMIREZ ORDER ATTEMPTED TO GIVE PT 4 BABY ASA PT WAS NOT ABLE TO CHEW THEN AND SPIT THEM OUT. PER DR. RAMIREZ PT WILL BE NPO.
[2019-04-11 20:00] VITALS: BP 136/64
[2019-04-11 20:03] VITALS: BP 119/66
[2019-04-12] VITALS: BP 129/69
[2019-04-12 00:54] LABS: ABSOLUTE BASOPHILS 0.1 thou/uL (0.0-0.2); ABSOLUTE LYMPHOCYTES 0.7 thou/uL (0.8-5.3); ABSOLUTE MONOCYTES 0.1 thou/uL (0.0-1.2); ABSOLUTE NEUTROPHILS 14.7 thou/uL (1.6-8.1); BASOPHILS 0.5 %; HEMATOCRIT 39.5 % (42.0-52.0); LYMPHOCYTES 4.6 %; MCH 27.8 pg (26.0-34.0); MCV 84.1 fL (80.0-100.0); MONOCYTES 0.9 %; MPV 8.1 fl. (7.2-11.1); NUCLEATED RBCS 0 /100WBC; PLATELET COUNT* 262 thou/uL (150-400); RBC 4.69 mil/uL (4.50-6.00); RDW-CV 15.2 % (10.5-14.5); WBC 15.7 thou/uL (4.0-11.0)
[2019-04-12 01:04] LABS: CALCIUM 8.2 mg/dL (8.5-10.1); CREATININE 2.6 mg/dL (0.6-1.3); POTASSIUM 5.6 mmol/L (3.5-5.1)
[2019-04-12] MEDS ORDERED: NITROSTAT0.4 M1 SUBLING (01:46)
[2019-04-12 03:55] VITALS: BP 133/81
--- NOTE | 2019-04-12 04:52 | NUR ---
RECEIVED REPORT FROM ED RN. PT TRANSFERRED TO 224. PT A&OX4. 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 VSS. ADMISSION HISTORY & PHYSICAL ASSESSMENT COMPLETED AND CHARTED. PT O2 AT 5L NC. PT REFUSING BIPAP & TURNS EVEN AFTER EDUCATION WAS GIVEN. PT COMPLAINED OF LEFT ARM PAIN & REQUESTING SLEEPING PILL-DR JENSEN MADE AWARE WITH NEW ORDERS. PT ABLE TO SLEEP WELL ON BED. FALL PRECAUTIONS IN PLACE. CALL LIGHT WITHIN REACH.
[2019-04-12 08:18] VITALS: BP 133/78
[2019-04-12 12:49] VITALS: BP 131/70
--- NOTE | 2019-04-12 16:02 | NUR ---
PT NOT PROGRESSING WELL TOWARDS GOALS THIS SHIFT. CONTINUES TO HAVE PERSISTENT EPISODES OF COUGHING AND SHORTNESS OF AIR. MAINTAINING OXYGEN SATURATION ON 4-5L/NC. REQUESTING AND TOLERATING BIPAP INCREASINGLY THIS SHIFT. SUSPECT THAT PT MAY BE ASPIRATING ON FLUIDS. ST EVAL AND TREAT ORDERED. CARDIOLOGY CONSULTED AND ECHO ORDERED. NO OTHER CONCERNS AT THIS TIME. CLWR. WCTM.
[2019-04-12 16:28] VITALS: BP 128/73
[2019-04-12 20:00] VITALS: BP 126/67
[2019-04-13] VITALS: BP 133/73
[2019-04-13 03:58] VITALS: BP 120/70
--- NOTE | 2019-04-13 05:12 | NUR ---
ASSUMED CARE OF PT AFTER REPORT AT 1930. PT A&OX4. VSS. PHYSICAL ASSESSMENT COMPLETED AND CHARTED. PT ONO2 AT 4L NC. PT REFUSED BIPAP EVEN EDUCATION WAS GIVEN. PT UPSTANDBY TO EDGE OF THE BED. PT DENIES ANY PAIN OR DISCOMFORT. PT ABLE TO SLEEP WELL ON BED. FALL PRECAUTIONS IN PLACE. CALL LIGHT WITHIN REACH.
[2019-04-13 07:43] VITALS: BP 134/79
[2019-04-13 12:00] VITALS: BP 119/64
[2019-04-13 12:44] LABS: ABSOLUTE LYMPHOCYTES 0.5 thou/uL (0.8-5.3); ABSOLUTE MONOCYTES 0.4 thou/uL (0.0-1.2); ABSOLUTE NEUTROPHILS 21.5 thou/uL (1.6-8.1); BASOPHILS 0.1 %; HEMATOCRIT 42.1 % (42.0-52.0); LYMPHOCYTES 2.4 %; MCH 28.2 pg (26.0-34.0); MCHC 33.3 g/dL (28.0-37.0); MCV 84.7 fL (80.0-100.0); MPV 8.3 fl. (7.2-11.1); NUCLEATED RBCS 0 /100WBC; PLATELET COUNT* 252 thou/uL (150-400); POLYS 95.5 %; RBC 4.97 mil/uL (4.50-6.00); RDW-CV 15.1 % (10.5-14.5); WBC 22.5 thou/uL (4.0-11.0)
[2019-04-13 13:03] LABS: CALCIUM 8.3 mg/dL (8.5-10.1); CREATININE 2.4 mg/dL (0.6-1.3); POTASSIUM 5.2 mmol/L (3.5-5.1); TOTAL BILIRUBIN 0.3 mg/dL (<0.1-1.0); TOTAL PROTEIN 6.2 g/dL (6.4-8.2)
--- NOTE | 2019-04-13 15:14 | NUR ---
PT SOMEWHAT PROGRESSING TOWARDS GOALS THIS SHIFT. PULMONOLOGISTS CONSULTED. FLU SWAB OBTAINED. BLE DOPPLER COMPLETED. REFER TO RESULTS. PT HAS NOT REQUESTED BIPAP THIS SHIFT. CONTINUES ON 4L/NC. NO OTHER CONCERNS AT THIS TIME. CLWR. WCTM.
[2019-04-13 15:58] VITALS: BP 91/40
[2019-04-13 18:47] LABS: INFLUENZA A ANTIGEN Negative (Negative); INFLUENZA B ANTIGEN Negative (Negative)
[2019-04-13 20:00] VITALS: BP 134/77
[2019-04-14 00:43] VITALS: BP 104/42
[2019-04-14 04:00] LABS: ABSOLUTE LYMPHOCYTES 0.5 thou/uL (0.8-5.3); ABSOLUTE MONOCYTES 0.4 thou/uL (0.0-1.2); ABSOLUTE NEUTROPHILS 17.4 thou/uL (1.6-8.1); BASOPHILS 0.1 %; HEMATOCRIT 38.6 % (42.0-52.0); HEMOGLOBIN 12.7 gm/dL (14.0-18.0); LYMPHOCYTES 2.6 %; MCH 27.7 pg (26.0-34.0); MCHC 32.8 g/dL (28.0-37.0); MCV 84.4 fL (80.0-100.0); MONOCYTES 2.1 %; MPV 8.6 fl. (7.2-11.1); NUCLEATED RBCS 0 /100WBC; PLATELET COUNT* 219 thou/uL (150-400); POLYS 95.2 %; RBC 4.58 mil/uL (4.50-6.00); RDW-CV 14.9 % (10.5-14.5); WBC 18.3 thou/uL (4.0-11.0)
[2019-04-14 04:02] VITALS: BP 123/57
[2019-04-14 04:18] LABS: ANION GAP 10 mmol/L (7-16); BUN 73 mg/dL (7-18); CHLORIDE 105 mmol/L (98-107); CHOLESTEROL 157 mg/dL (<200); CO2 23 mmol/L (21-32); CREATININE 2.4 mg/dL (0.6-1.3); GLUCOSE 460 mg/dL (70-99); HDL CHOLESTEROL 63 mg/dL (>40); LDL CHOLESTEROL 74 mg/dL (<100); POTASSIUM 4.8 mmol/L (3.5-5.1); SODIUM 138 mmol/L (136-145); TC:HDL 2.5 Ratio (Not establshd); TRIGLYCERIDE 102 mg/dL (<150); VLDL 20 mg/dL (<40)
[2019-04-14 04:28] LABS: SERUM ASSESSMENT CLEAR
[2019-04-14 08:00] VITALS: BP 151/88
[2019-04-14 13:07] VITALS: BP 135/73
--- NOTE | 2019-04-14 14:47 | NUR ---
Pt is A&O. Resides at home alone. Spoke with dtr, she quit her job and is Pt's caregiver. Pt uses a scooter for mobility, able to stand and pivot for transfers. Pt has a lift chair and grab bars on his bed and in the bathroom. Dtr has put cameras in the home to monitor him when she's not there. Dtr states that she is there most of the day until Pt goes to bed. Pt wears home o2, dtr does not which company. No hx of HH. Hx of SNF in [place]. Dtr had questions regarding bipap/cpap for home use. Also had questions regarding HH at [facility], dtr states that the [facility] of [facility] will not cover HH, CM to check and see if Pt can get HH through his Medicare. Following.
[2019-04-14 16:00] VITALS: BP 113/53
--- NOTE | 2019-04-14 16:33 | 2DMMODE ---
[place] [address] 2 D/M-MODE ECHOCARDIOGRAM Name: WOODLAURIE Kevin Room: [address] IN [facility]#: [id number] Admission: 04/11/19 Attend Phys: Eddi Feliciano, Discharge: Date of : 46 Date of Service: 04/14/19 1632 Report #: [id number] THIS REPORT FOR: cc: YOVANY OSMAN MD, BEVERLEY B. MD Blick,Calos Monterroso MD [facility] ~ APPROVED REPORT Study performed: 04/14/2019 14:23:40 EXAM: Comprehensive 2D, Patient Location: In-Patient Room #: [facility] Status: routine BSA: 2.23 HR: 87 bpm BP: 151/88 mmHg Other Information Study Quality: Adequate Technically limited study due to poor endocardial definition. Echo Enhancing Agent Indication: Endocardial border delineation Agent(s) / Amount(s) Used: Optison 3 cc Left Ventricle Left ventricle is mildly dilated. apical akinesis noted There is normal left ventricular wall thickness. Left ventricular systolic function is severely decreased. LVEF is 25-30%. Right Ventricle The right ventricle is normal size. The right ventricular systolic function is normal. Atria The left atrium size is normal. The right atrium size is normal. Aortic Valve The Aortic valve is sclerotic. Mitral Valve The mitral valve is [place] [address] 2 D/M-MODE ECHOCARDIOGRAM Name: LAURIE MUIR Room: [address] IN M.R.#: [id number] Admission: 04/11/19 Attend Phys: Eddi Feliciano, Discharge: Date of : 46 Date of Service: 04/14/191631 Report #: [id number] Tricuspid Valve The tricuspid valve is normal in structure. Pulmonic Valve The pulmonary valve is normal in structure. Great Vessels The aortic root is normal in size. Pericardium There is no pericardial effusion. <Conclusion> LVEF is 25-30%. apical akinesis noted The Aortic valve is sclerotic. <ELECTRONICALLY SIGNED> By: Calos Hutchinson MD, FACC 04/14/191631 31 31 Calos Hutchinson MD, FACC /INF
--- NOTE | 2019-04-14 19:19 | CON ---
[address] [address] CONSULTATION Name: WOODLAURIE Brown Room: [address] IN M.R.#: [id number] Admission: 04/11/19 Attend Phys: Eddi Feliciano MD Discharge: Date of : 46 Report #: [id number] THIS REPORT FOR: //name// cc: YOVANY OSMAN MD, BEVERLEY B. MD ~ THIS REPORT FOR: //name// CC: Eddi OSMAN DATE OF SERVICE: 04/13/2019 I was asked to see this 69-year-old gentleman for acute on chronic respiratory failure, acute exacerbation of chronic obstructive pulmonary disease, acute bronchitis versus pneumonia. HISTORY OF PRESENT ILLNESS: He has history of more than 609-xhnm-ktgs smoking, continues to smoke about 1-2 cigarettes per day. He was seen at [facility] on 04/04, and was started on doxycycline and prednisone. He has had increased shortness of breath, cough, and wheezing. He does not have much of sputum. He has had more lower extremity edema. He denies chest pain. He denies fever or chills. He was brought to the Emergency Room via masks. He did use BiPAP a little bit, on first day has not used BiPAP. He is on oxygen 3 liters per minute via nasal cannula continuously at home. PAST MEDICAL HISTORY: Systolic CHF, COPD, chronic respiratory failure, chronic kidney disease, obstructive sleep apnea-hypopnea syndrome, CPAP intolerant. ALLERGIES: CODEINE, ERTAPENEM, METFORMIN, ROSIGLITAZONE, CRESTOR, JANUVIA, STATINS. MEDICATIONS: Currently, he is on aspirin, Plavix, Colace, Zetia, insulin, DuoNeb, Levaquin, melatonin, Solu-Medrol 62.5 mg every 8 hours, metoprolol, Protonix, Lasix 40 mg p.o. daily. SOCIAL HISTORY: History of more than 834-jbmm-xztm smoking, continues to smoke. FAMILY HISTORY: There is no history of lung disease. REVIEW OF SYSTEMS: As mentioned as above. He has spinal stenosis and has not walked for the past 2 years. Other systems are otherwise negative. PHYSICAL EXAMINATION: GENERAL: This is an obese gentleman. VITAL SIGNS: His O2 saturation on 3 liters of oxygen is 94%, respiratory rate 18, heart rate 73, blood pressure 131/70, temperature 36.4. [place] [address] CONSULTATION Name: LAURIE MUIR Room: [address]#: [id number] Admission: 04/11/19 Attend Phys: Eddi Feliciano MD Discharge: Date of : 46 Report #: [id number] HEENT: Normocephalic, atraumatic. Pupils are equal, round, reactive to light. There is shallow oropharynx. Nose is clear. NECK: Positive JVD. No lymphadenopathy or thyromegaly. CARDIOVASCULAR: Regular rate and rhythm. PMI is nondisplaced. CHEST: Inspection is normal. LUNGS: There are bibasilar crackles, a few end-expiratory wheezing. ABDOMEN: Soft and obese. Bowel sounds are good. There is no mass. EXTREMITIES: There is edema, left more than right. NEUROLOGIC: Alert and oriented. PSYCHIATRIC: He is very angry. SKIN: Chronic changes. LABORATORY DATA: I reviewed the following lab data: Chest x-ray shows cardiomegaly, lower lobe infiltrate, right more than left. WBC 15.7, hemoglobin 13, platelets 262. Sodium 141, potassium 5.6, chloride 107, CO2 of 23, glucose 332, BUN 65, creatinine 2.6. Lactic acid 3.2. Troponin 0.92. BNP 6818. ABG on 04/11/2019, pH 7.3, pCO2 of 38, pO2 of 121, on BiPAP 16/8, FiO2 of 40%. IMPRESSION: 1. Acute on chronic respiratory failure, multifactorial in etiology including acute exacerbation of chronic obstructive pulmonary disease, acute systolic congestive heart failure, non-ST elevation myocardial infarction type 2, acute bronchitis versus pneumonia, rule out thromboembolic disease. 2. Abnormal chest x-ray. 3. Acute bronchitis versus pneumonia. 4. Acute exacerbation of chronic obstructive pulmonary disease. 5. Acute systolic congestive heart failure. 6. Type 2 non-ST elevation myocardial infarction. 7. Cardiomyopathy. 8. Diabetes mellitus. 9. Obstructive sleep apnea-hypopnea syndrome. 10. Smoker. 11. Diabetes mellitus. 12. Acute kidney injury, chronic kidney disease. PLAN AND RECOMMENDATIONS: 1. Titrate FiO2 to keep O2 saturation 90%. 2. Continue bronchodilator. 3. Add inhaled corticosteroid. 4. Continue Solu-Medrol 62.5 mg IV every 8 hours. 5. Keep intake less than output. I do recommend IV Lasix. 6. Repeat labs. Monitor creatinine and potassium. 7. Monitor troponin. 8. Continue Levaquin. 9. I have advised him to stop smoking forever. 10. I have discussed obstructive sleep apnea-hypopnea syndrome, the importance [address] [address] CONSULTATION Name: LAURIE MUIR JR Room: [address] IN [facility]#: [id number] Admission: 04/11/19 Attend Phys: Eddi Feliciano MD Discharge: Date of : 46 Report #: [id number] of treatment if untreated, increased cardiovascular and STORY WRITER morbidity and mortality. I have advised him to use BiPAP, he declined. 11. Lower extremity venous Doppler. 12. Nasal swab for influenza A and B. 13. The findings and recommendations were discussed with the patient and his daughter. Thank you very much for allowing me to participate in care of this very nice gentleman. <ELECTRONICALLY SIGNED> By: Kamran Francisco MD 04/14/19 1919 1234 1417Kamran Francisco MD /nt
--- NOTE | 2019-04-14 19:36 | NUR ---
ASSUMED PT CARE AT 0800, AOX4, UP WITH ASSIST, USES URINAL. O2 SAT 90'S 4L NC. TRACING SR, 1ST DEGREE, BBB ON TELE. PT DENIES PAIN. PT AGITATED THIS AM FOR NOT HAVING ENOUGH SLEEP LAST NIGHT. PT ACCU CHECK. PT LOWER EXT EDEMA NOTED. PT LAST BM 04/12/19. IV ACESS INTACT. VSS, AM ASSESSMENT CHARTED, MEDS GIVEN PER MAR, CALL LIGHT WITHIN REACH, WILL CONTINUE TO MONITOR.
[2019-04-15 04:30] VITALS: BP 132/80
--- NOTE | 2019-04-15 06:50 | NUR ---
PT VERY IRRITABLE THROUGH SHIFT. REFUSED MEDS, RT TX, TELE MONITOR, VITALS ETC... DID GET PT TO AGREE TO HS MEDS BUT REFUSED MOST OTHER TREATMENTS THROUGHOUT THE NIGHT. NETWORK/TELECOM ENGINEER NOTIFIED.
[2019-04-15 08:00] VITALS: BP 122/62
[2019-04-15 08:06] LABS: HEMATOCRIT 40.5 % (42.0-52.0); HEMOGLOBIN 13.3 gm/dL (14.0-18.0); MCH 27.6 pg (26.0-34.0); MCHC 32.9 g/dL (28.0-37.0); MCV 83.9 fL (80.0-100.0); MPV 8.2 fl. (7.2-11.1); NUCLEATED RBCS 0 /100WBC; PLATELET COUNT* 230 thou/uL (150-400); RBC 4.83 mil/uL (4.50-6.00); RDW-CV 14.8 % (10.5-14.5); WBC 18.4 thou/uL (4.0-11.0)
[2019-04-15 08:14] LABS: CALCIUM 7.8 mg/dL (8.5-10.1); CREATININE 2.3 mg/dL (0.6-1.3); POTASSIUM 5.3 mmol/L (3.5-5.1)
[2019-04-15 08:38] LABS: ABSOLUTE LYMPHOCYTES 0.7 thou/uL (0.8-5.3); ABSOLUTE MONOCYTES 0.4 thou/uL (0.0-1.2); ABSOLUTE NEUTROPHILS 17.3 thou/uL (1.6-8.1); METAMYELOCYTES 1 %; PLATELET ESTIMATE ADEQUATE
[2019-04-15 11:54] VITALS: BP 153/82
--- NOTE | 2019-04-15 12:00 | NUR ---
ASSUMED PT CARE AT 0800, AOX4, UP WIT ASSIST. PT O2 SAT 90'S 4L NC. SR, BBB, ON TELE. PT SOUND WHEEZES AND DIMINISH. PT STILL AGITATED FOR HAVING DISTURB SLEEP, WANTED TO GO HOME TODAY. DAUGHTER UPSET WITH FATHER WHO WANTED TO GO HOME, BUT PT ALREADY DECIDED HE DOESNT WANT TO STAY ANOTHER NIGHT. PT TALKED THE HOSPITALIST AND GOT DISCHARGED ORDER. PT LEFT THE UNIT AT 1600.
[2019-04-15] MEDS ORDERED: LEVAQUIN 750 M750 MG PO (12:51)
[2019-04-15] MEDS ORDERED: PREDNISONE 10 M10 MG PO (12:51)
[2019-04-15] MEDS ORDERED: MUCINEX600 MG PO (12:57)
--- NOTE | 2019-04-15 13:13 | NUR ---
TIME IN PT ROOM: [id number]. DTR PRESENT IN ROOM, PT UNMOTIVATED BUT AGREEABLE TO ST COGNITIVE LINGUISTIC EVALUATION AT FIRST. RATIONALE FOR EXAMINATION PROVIDED. ON FIRST QUESTION OF MOCA, PT BECAME VERY ANGRY, PRESTON A LINE THROUGH THE '2' ON THE FIRST QUESTION, THREW THE PENCIL ON THE BEDSIDE TABLE AND STATED HE WOULDNT DO ANYMORE. ST LEFT ROOM, PT DTR STATED SHE WAS SORRY. PT BECAME LABILE AGAIN ( HE WAS DURING SWALLOW EVALUATION EARLIER THIS DATE). PT ALSO YELLING, SHE CAN'T DO , NO ONE CAN DO , THIS PLACE IS TERRIBLE. COGNITIVE LINGUISTIC EVALUATION NOT COMPLETED.
--- NOTE | 2019-04-15 13:40 | NUR ---
SW met with pt and pt dtr to discuss dc planning for today. Pt reported to SW that he plans to go home and doesn't want anything besides a script for new cpap and his script for the pnuemonia. The pt dtr did not look at SW when SW addressed her and hardly spoke with SW. SW offered to contact [facility] and coordinate [facility] of care and/or discuss HH possibilities through Medicare but pt refused. COLLETTE attempted to inform Dr Vlaladares but he was unavailable at this time; SW informed pt nurse.
[2019-04-15 14:54] VITALS: BP 153/82
[2019-04-15] MEDS ORDERED: ASA81BEC PO (14:59)
== END 2019-04-15 16:13 | disposition home or self-care (01) | DRG 280 ==
LOC: M.ERS 16:08 → M.2W 17:18 → M.TBA-ER 17:18 → M.2W 20:51
PROVIDERS: Family Medicine; Internal Medicine; Internal Medicine Cardiovascular Disease; Internal Medicine Pulmonary Disease; ADMIT Internal Medicine
PROC: 5A09357 Assistance with Respiratory Ventilation, Less than 24 Consecutive Hours, Continuous Positive Airway Pressure (ICD-10-PCS; principal; 2019-04-12)
PROC: 5A09357 Assistance with Respiratory Ventilation, Less than 24 Consecutive Hours, Continuous Positive Airway Pressure (ICD-10-PCS; 2019-04-14)
DX: I21.4 Non-ST elevation (NSTEMI) myocardial infarction (principal); J69.0 Pneumonitis due to inhalation of food and vomit; J96.21 Acute and chronic respiratory failure with hypoxia; I50.23 Acute on chronic systolic (congestive) heart failure; I13.0 Hypertensive heart and chronic kidney disease with heart failure and stage 1 through stage 4 chronic kidney disease, or unspecified chronic kidney disease; I42.9 Cardiomyopathy, unspecified; N17.9 Acute kidney failure, unspecified; J43.9 Emphysema, unspecified; E66.9 Obesity, unspecified; I87.8 Other specified disorders of veins; E78.5 Hyperlipidemia, unspecified; F17.210 Nicotine dependence, cigarettes, uncomplicated; N18.9 Chronic kidney disease, unspecified; E11.22 Type 2 diabetes mellitus with diabetic chronic kidney disease; G47.33 Obstructive sleep apnea (adult) (pediatric); I25.10 Atherosclerotic heart disease of native coronary artery without angina pectoris; E87.5 Hyperkalemia; E11.65 Type 2 diabetes mellitus with hyperglycemia; Z95.5 Presence of coronary angioplasty implant and graft; Z79.899 Other long term (current) drug therapy; Z79.4 Long term (current) use of insulin; Z99.81 Dependence on supplemental oxygen; Z88.6 Allergy status to analgesic agent; Z88.1 Allergy status to other antibiotic agents; Z68.35 Body mass index [BMI] 35.0-35.9, adult; Z71.6 Tobacco abuse counseling; Z88.5 Allergy status to narcotic agent

== ENCOUNTER 2019-05-02 12:56 | Inpatient (IN) | payer OTHER ==
[~2019-05-02] VITALS: Ht 170.2 cm; Wt 110.2 kg
[~2019-05-02 12:56] MED LIST changes: +ASA81BEC PO; +LEVAQUIN 750 M750 MG PO; +MUCINEX600 MG PO; +NITROSTAT0.4 M1 SUBLING; +PREDNISONE 10 M10 MG PO
[2019-05-02 13:03] VITALS: BP 155/97
[2019-05-02 13:23] LABS: BE 0.3 mmol/L (-2 to +3); PCO2 41.7 mmHg (35.0-45.0); PO2 87.2 mmHg (75.0-100.0); pH 7.399 (7.340-7.450)
[2019-05-02 13:49] LABS: ABSOLUTE BASOPHILS 0.1 thou/uL (0.0-0.2); ABSOLUTE EOSINOPHILS 0.2 thou/uL (0.0-0.7); ABSOLUTE LYMPHOCYTES 1.4 thou/uL (0.8-5.3); ABSOLUTE MONOCYTES 0.6 thou/uL (0.0-1.2); ABSOLUTE NEUTROPHILS 8.1 thou/uL (1.6-8.1); BASOPHILS 0.6 %; EOSINOPHILS 1.9 %; HEMATOCRIT 36.3 % (42.0-52.0); HEMOGLOBIN 12.3 gm/dL (14.0-18.0); LYMPHOCYTES 13.3 %; MCH 28.2 pg (26.0-34.0); MCHC 33.9 g/dL (28.0-37.0); MCV 83.3 fL (80.0-100.0); MONOCYTES 5.5 %; MPV 7.6 fl. (7.2-11.1); NUCLEATED RBCS 0 /100WBC; PLATELET COUNT* 257 thou/uL (150-400); POLYS 78.7 %; RBC 4.36 mil/uL (4.50-6.00); RDW-CV 15.1 % (10.5-14.5); WBC 10.3 thou/uL (4.0-11.0)
[2019-05-02 14:03] LABS: APTT 30.6 Seconds (25.0-31.3); CALCIUM 8.4 mg/dL (8.5-10.1); INR 0.9; POTASSIUM 4.4 mmol/L (3.5-5.1); PROTIME 9.6 Seconds (9.20-11.50)
[2019-05-02 14:14] LABS: ALBUMIN 2.9 g/dL (3.4-5.0); TOTAL BILIRUBIN 0.3 mg/dL (<0.1-1.0); TOTAL PROTEIN 5.8 g/dL (6.4-8.2)
--- NOTE | 2019-05-02 16:13 | NUR ---
PICC LINE INSERTED BY PICC NURSE
--- NOTE | 2019-05-02 16:54 | EKG ---
[place] [address] ELECTROCARDIOGRAM REPORT Name: LAURIE MUIR JR Room: [place] [address] ADM IN .R.#: [id number] Admission: 05/02/19 Attend Phys: Antonina Breen Discharge: Date of : 46 Date of Service: 05/02/19 1301 Report #: [id number] THIS REPORT FOR: //name// [facility] ED Test Date: 2019-05-02 Test Time: 13:01:48 Pat Name: LAURIE MUIR Department: Room: [facility] Gender: M Head Filter Press Tender: [facility] : 1950 Requested By: Lorenzo Diggs Order Number: [id number] MD: Tor Miller Measurements Intervals [place] Rate: 108 P: 98 LA: 178 QRS: 13 QRSD: 109 T: 90 QT: 334 QTc: 448 Interpretive Statements Sinus tachycardia Low voltage, extremity and precordial leads Anteroseptal infarct, old Nonspecific repol abnormality, lateral leads Compared to ECG 04/11/2019 16:13:27 Low QRS voltage now present Early repolarization now present Intraventricular conduction delay no longer present Myocardial infarct finding still present Electronically Signed On 05-02-2019 16:52:51 CDT by Tor Miller [email or web address] <ELECTRONICALLY SIGNED> By: Tor Miller MD, [facility] 05/02/19 1652 1301 1301 Tor Miller MD, [facility] /EPI
--- NOTE | 2019-05-02 19:34 | NUR ---
DAUGHTER CAME OUT TO DESK AND STATED PTIS ALLERGIC TO VANCOMYCIN AND HE IS ALLERGIC TO IT. PT HAS HISTORY OF SWELLING AND RASH. VANCOMYCIN DCD AND AND DR HUIZAR NOTIFIED OF ALLERGY
[2019-05-02 20:35] VITALS: BP 143/83
[2019-05-02 21:15] VITALS: BP 141/77
[2019-05-03 04:00] VITALS: BP 133/84
--- NOTE | 2019-05-03 06:56 | NUR ---
PT RECIEVED FROM ED. ALERT AND ORIENTED X4. SAT MAINTAINED IN BIPAP AND O2 AT NIGHT. PT IS NON COMPLIANT, REFUSES TO BE ON BED ALARM, EDUCTAION GIVEN NEEDS REINFORCEMENT. PT TOLD THIS NURSE "I WANTS TO SLEEP AND DOESN'T WANT TO BE DISTURBED". SOB WITH EXERTION. CALL LIGHT WITHIN REACH AND BED IN LOW POSITION. HOURLY ROUNDING DONE FOR PT SAFETY.
--- NOTE | 2019-05-03 07:20 | NUR ---
CHANGE OF SHIFT, BEDSIDE REPORT GIVEN PATIENT SEEN AT BEDSIDE, IN BED AND RESTING WITH BIPAP ON ASSUMED PATIENT CARE
[2019-05-03 08:00] VITALS: BP 136/85
--- NOTE | 2019-05-03 10:30 | NUR ---
PATIENT CUSSING AT NURSE FOR THE SECOND TIME THIS MORNING AND NURSE ASKED PATIENT NOT TO USE THE LORDS NAME IN VEIN PATIENT ASKED FOR ANOTHER NURSE CHARGE NURSE NOTIFIED REPORT GIVEN TO MIRTHA AND ASSUMED PATIENT CARE
[2019-05-03 11:27] VITALS: BP 123/78
[2019-05-03 12:23] LABS: HEMATOCRIT 38.5 % (42.0-52.0); HEMOGLOBIN 12.7 gm/dL (14.0-18.0); MCH 28.4 pg (26.0-34.0); MPV 8.1 fl. (7.2-11.1); NUCLEATED RBCS 0 /100WBC; PLATELET COUNT* 275 thou/uL (150-400); RBC 4.48 mil/uL (4.50-6.00); RDW-CV 15.2 % (10.5-14.5); WBC 11.9 thou/uL (4.0-11.0)
[2019-05-03 13:18] LABS: BE 0.2 mmol/L (-2 to +3); PCO2 VENOUS 48.1 mmHg (41.0-51.0); PO2 VENOUS 41.9 mmHg (35.0-45.0)
[2019-05-03 13:42] LABS: CALCIUM 8.5 mg/dL (8.5-10.1); CREATININE 2.7 mg/dL (0.6-1.3); MAGNESIUM 2.3 mg/dL (1.8-2.4); POTASSIUM 4.9 mmol/L (3.5-5.1)
[2019-05-03 14:17] LABS: ABSOLUTE LYMPHOCYTES 0.6 thou/uL (0.8-5.3); ABSOLUTE MONOCYTES 0.1 thou/uL (0.0-1.2); ABSOLUTE NEUTROPHILS 11.2 thou/uL (1.6-8.1); PLATELET ESTIMATE ADEQUATE
[2019-05-03 14:18] LABS: ANISOCYTOSIS Occasional
--- NOTE | 2019-05-03 19:12 | NUR ---
ASSUMED PT CARE AT APPROX 1030 FOR LICO HARMON. RECEIVED REPORT, PT RESTING IN BED ON BIPAP. HE HAS ALTERNATED BETWEEN BIPAP AND 6L NC. PATIENT UPSET AT TIMES, BECOMES IMPATIENT WITH STAFF MEMBERS VERY EASILY, YELLING AT DR SLATER THIS AFTERNOON. PATIENT C/O PAIN IN BACK THAT IS CHRONIC, STATES HE TAKES ALEVE AT HOME. THIS RN SPOKE TO DR SRIVASTAVA TO GET SOMETHING ORDERED, PT REFUSES TO TAKE WHAT HAS BEEN ORDERED. HE WANTS ALEVE OR IBUPROFEN, KIDNEY FUNCTION IMPARED AT THIS TIME. PT REFUSING SOME MEDS TODAY. BLOOD SUGAR >500 AT LUNCH, RECIEVED ORDERS FOR INSULIN ADJUSTMENT, BLOOD SUGAR DECREASED, PATIENT NOT EATING MUCH BUT ASKS FOR SNACKS. PT DOES HAVE A HEALED WOUND TO HIS COCCYX, HE STATES IT WAS SO BAD HE "DUG IT OUT AT HOME WITH A POPCICLE STICK".AT THIS TIME IT IS WHITE AND PINK AND SCARRED. DTR IS AT [facility], UPDATED ON PLAN OF CARE.
[2019-05-03 20:20] VITALS: BP 106/61
[2019-05-04] VITALS (10 sets, daily range): BP systolic 102–146; BP diastolic 62–85
--- NOTE | 2019-05-04 05:58 | NUR ---
PT CARE ASSUMED AT 1930. SAT MAINTAINED IN BIPAP AND O2 AT NIGHT. ALERT AND ORIENTED X4. PT IS NON COMPLIANT, REFUSED TO BE ON BED ALARM, EUDCATION GIVEN NEEDS REINFORCEMENT. PT TOLD THIS NURSE " HE DOESN'T FEEL ITS NECESSARY TO WAKE HIM AT THE MIDDLE OF THE NIGHT FOR VITALS". PT IS AGITATED. CALL LIGHT WITHIN REACH AND BED IN LOW POSITION. HOURLY ROUNDING DONE FOR PT SAFETY.
--- NOTE | 2019-05-04 12:48 | CON ---
[address] [address] CONSULTATION Name: LAURIE MUIR Room: [address] IN .R.#: [id number] Admission: 05/02/19 Attend Phys: Tim Pedraza Discharge: Date of : 46 Report #: [id number] THIS REPORT FOR: //name// cc: YOVANY OSMAN MD, BEVERLEY B. MD ~ THIS REPORT FOR: //name// CC: YOVANY Breen INDICATION: Acute on chronic combined heart failure. HISTORY OF PRESENT ILLNESS: The patient is a 69-year-old gentleman with history of ischemic cardiomyopathy with an ejection fraction 25%. He has a history of prior anterior wall myocardial infarction. He also has severe COPD. He was admitted to the hospital with increasing shortness of breath. He was found to be in acute on chronic heart failure with volume overload. He is also having a COPD exacerbation. He denies any chest pain in this setting. He has mildly elevated troponins consistent with type 2 myocardial infarction secondary to cardiac strain from heart failure. He is improving somewhat with diuresis. He is grossly volume overloaded. PAST MEDICAL HISTORY: 1. COPD. 2. Acute on chronic heart failure. 3. Ischemic cardiomyopathy. 4. Coronary artery disease. 5. Prior anterior wall myocardial infarction. 6. History of cellulitis. 7. Chronic renal insufficiency. 8. Type 2 diabetes mellitus. ALLERGIES: CODEINE, ERTAPENEM, METFORMIN, PIPERACILLIN, ROSIGLITAZONE, ROSUVASTATIN, SITAGLIPTIN, STATINS AND TAZOBACTAM. CURRENT MEDICATIONS: Aspirin 81 mg daily, Plavix 75 mg daily, Zetia 5 mg daily, furosemide 40 mg p.o. daily, guaifenesin 600 mg 2 tablets p.o. b.i.d., insulin as directed, sliding scale, ipratropium q.6 hours p.r.n., levofloxacin 750 mg daily, metoprolol tartrate 25 mg daily, Nitrostat p.r.n., prednisone 40 mg daily, Tiotropium, Spiriva HandiHaler 2 puffs b.i.d. SOCIAL HISTORY: The patient is . He does smoke 4-5 cigarettes daily. He does not drink alcohol. FAMILY HISTORY: [place] [address] CONSULTATION Name: LAURIE MUIR JR Room: [address]#: [id number] Admission: 05/02/19 Attend Phys: Tim Pedraza Discharge: Date of : 46 Report #: [id number] REVIEW OF SYSTEMS: A 14-point review of systems is positive for productive cough, COPD, emphysema, shortness of breath, orthopnea, paroxysmal nocturnal dyspnea, edema, type 2 diabetes mellitus, depression, anxiety, PTSD, reading glasses and dentures. Otherwise, 14-point review of systems was unremarkable. PHYSICAL EXAMINATION: VITAL SIGNS: Blood pressure 123/78, pulse is in the 102 and regular. GENERAL: This is a chronically ill-appearing elderly gentleman in no distress. Mood and affect blunted. HEENT: Head is normocephalic, atraumatic. Extraocular muscles are intact. Mucous membranes are moist. NECK: Shows jugular venous distention. I do not appreciate bruit. CHEST: Reveals diminished breath sounds throughout with basilar rales. CARDIOVASCULAR: Reveals a regular rhythm without gallop or murmur. ABDOMEN: Reveals a protuberant abdomen, soft and nontender. EXTREMITIES: Shows 3-4+ edema to the knees bilaterally. There are chronic skin changes noted. IMPRESSION AND RECOMMENDATIONS: 1. Acute on chronic combined heart failure. Continue IV diuresis with Lasix. 2. Ischemic cardiomyopathy, switch from metoprolol to carvedilol. Start hydralazine and isosorbide. No SAM inhibitor due to renal insufficiency. 3. Coronary artery disease, presently stable. Elevated troponin secondary to type 2 myocardial infarction. 4. Type 2 myocardial infarction. 5. Type 2 diabetes mellitus per hospitalist. <ELECTRONICALLY SIGNED> By: Trenton Kendall MD, FACC 05/04/19 1248 1205 [id number] Kendall MD, FACC /nt
[2019-05-04 15:07] LABS: HEMATOCRIT 36.4 % (42.0-52.0); HEMOGLOBIN 12.2 gm/dL (14.0-18.0); MCH 28.4 pg (26.0-34.0); MCHC 33.6 g/dL (28.0-37.0); MCV 84.7 fL (80.0-100.0); MPV 8.6 fl. (7.2-11.1); RBC 4.29 mil/uL (4.50-6.00); RDW-CV 15.7 % (10.5-14.5); WBC 15.7 thou/uL (4.0-11.0)
[2019-05-04 15:22] LABS: CALCIUM 8.4 mg/dL (8.5-10.1); CREATININE 2.8 mg/dL (0.6-1.3); POTASSIUM 4.8 mmol/L (3.5-5.1); TOTAL BILIRUBIN 0.2 mg/dL (<0.1-1.0); TOTAL PROTEIN 5.9 g/dL (6.4-8.2)
--- NOTE | 2019-05-04 16:37 | NUR ---
PT A/O, SR/ST (80'S-110'S) ALL VSS ON 6L/ PRN BIPAP. PT NON COMPLIANT WITH INTAKE/OUTPUT.PT DID HAVE EPISODE OF COUGHING WITH FROTHY SPUTUM THIS AFTERNON WHERE BREATHING WAS INCREASINGLY LABORED. ORDERS FOR ICU TRANSFER. PLEASE SEE ASSESSMENT FOR ADDITIONAL INFO
--- NOTE | 2019-05-04 17:32 | NUR ---
PT TRANSFERED FROM TELE. BUMEX GTT STARTED PER ORDER. ALBUMIN TO BE GIVEN 3 HOURS AFTER BUMEX HAS BEEN INFUSING. PT ON DROPLET PRECAUTION FOR RESP PANEL. DENIES PAIN.
[2019-05-05] VITALS (20 sets, daily range): BP systolic 104–151; BP diastolic 55–87
--- NOTE | 2019-05-05 00:52 | NUR ---
RECEIVED REPORT AND ASSUMED CARE AT 1900. VSS. ICU MONITORING IN PLACE. PT REPORTS PAIN IN HIS BACK THAT IS CHRONIC. PHYSICIAN NOTIFIED. ORDERS RECEIVED. PT REPORTS NOT WANTING TO USE LIDOCAINE PATCH BECAUSE AT HOME HE NEEDS TO LINE UP MULTIPLE ONES ON HIS BACK FOR RELIEF. PT UP WITH ASSIST WITH WALKER, ON 6L NC. BIPAP NOC. BED LOCKED IN LOWEST POSTITION, CALL LIGHT WITHIN REACH.
[2019-05-05 04:05] LABS: ABSOLUTE LYMPHOCYTES 0.7 thou/uL (0.8-5.3); ABSOLUTE MONOCYTES 0.7 thou/uL (0.0-1.2); ABSOLUTE NEUTROPHILS 13.3 thou/uL (1.6-8.1); BASOPHILS 0.3 %; HEMOGLOBIN 12.1 gm/dL (14.0-18.0); LYMPHOCYTES 4.9 %; MCH 28.1 pg (26.0-34.0); MCHC 33.6 g/dL (28.0-37.0); MCV 83.7 fL (80.0-100.0); MONOCYTES 4.5 %; MPV 7.9 fl. (7.2-11.1); NUCLEATED RBCS 0 /100WBC; PLATELET COUNT* 296 thou/uL (150-400); POLYS 90.3 %; RBC 4.29 mil/uL (4.50-6.00); RDW-CV 15.4 % (10.5-14.5); WBC 14.7 thou/uL (4.0-11.0)
[2019-05-05 04:29] LABS: ALBUMIN 3.1 g/dL (3.4-5.0); CALCIUM 7.6 mg/dL (8.5-10.1); CREATININE 2.8 mg/dL (0.6-1.3); MAGNESIUM 2.4 mg/dL (1.8-2.4); PHOSPHORUS* 4.2 mg/dL (2.5-4.9); POTASSIUM 4.4 mmol/L (3.5-5.1); TOTAL BILIRUBIN 0.2 mg/dL (<0.1-1.0); TOTAL PROTEIN 6.5 g/dL (6.4-8.2)
--- NOTE | 2019-05-05 10:15 | NUR ---
INT ROUNDS: MET WITH PT, KNOWN FROM PREVIOUS STAY IN [place]. PT LIVES ALONE, DTR ASSISTS HIM WITH CARES. PT GOES TO THE [facility] FOR HIS CARE. USES O2 AT 3L, LIFT CHAIR AND SCOOTER AND GRAB BARS. PT STATES HE WAS TO GET A SLEEP STUDY, CALL TO [facility] TO CHECK ON WHEN IT IS SCHEDULED. PER MARSHA Gray/[facility] [phone], IS NOT SCHEDULED YET. PT PLANS TO RETURN HOME AT [place]. DENIES ANY OTHER NEEDS EXCEPT A NEW CPAP. WILL [facility]IN[facility] TO [facility] TO OBTAIN
--- NOTE | 2019-05-05 17:55 | NUR ---
PT IS A/O X4 BUT FORGETFUL AT TIMES.PT HAS BEEN IRRITABLE THROUGHTOUT SHIFT.VSS.CHILD SPECIALIST IN PLACE.PT REMAINS ON 4L O2NC/ BIPAP PRN.NO C/O PAIN.IV DIURETIC INFUSING PER ORDERS.URINE OUTPUT ADEQUATE.RENAL US COMPLETED.DROPLET PRECAUTIONS REMAIN IN PLACE FOR PENDING RVP.PT AND FAMILY INFORMED OF PLAN OF CARE AND COMMMUNICATES UNDERSTANDING.CALL LIGHT AND FALL PRECAUTIONS IN PLACE.WILL CONTINUE TO MONITOR FOR DURATION OF SHIFT.
[2019-05-06] VITALS (9 sets, daily range): BP systolic 113–142; BP diastolic 64–88
--- NOTE | 2019-05-06 04:10 | NUR ---
ASSUMED CARE AT 1900H, ON NC AT 4LPM AND TOLERATE. 2 LIDOCAINE PATCH PUT ON HIS BACK, ACCORDING TO HIM HE PUTS 3 OF THEM AT HOME. INSTRUCTED PT TO LESSEN HIS ORAL INTAKE AND HIS BEEN DRINKING DIET COKE THE WHOLE NIGHT. PT STILL ON BUMEX DRIP. CONTINUE MONITORING AND TOWARD GOALS.
[2019-05-06 05:57] LABS: ALBUMIN 2.9 g/dL (3.4-5.0); CALCIUM 7.4 mg/dL (8.5-10.1); CREATININE 2.5 mg/dL (0.6-1.3); TOTAL BILIRUBIN 0.2 mg/dL (<0.1-1.0); TOTAL PROTEIN 6.1 g/dL (6.4-8.2)
[2019-05-06 06:04] LABS: POTASSIUM 3.7 mmol/L (3.5-5.1)
--- NOTE | 2019-05-06 10:20 | CON ---
[address] [address] CONSULTATION Name: WOODLAURIE Kevin EDMONDS Room: [address] IN M.R.#: [id number] Admission: 05/02/19 Attend Phys: Tim Pedraza Discharge: Date of : 46 Report #: [id number] THIS REPORT FOR: //name// cc: YOVANY OSMAN MD, BEVERLEY B. MD ~ THIS REPORT FOR: //name// CC: YOVANY Breen DATE OF SERVICE: 05/05/2019 HISTORY OF PRESENT ILLNESS: The patient is a 69-year-old man with medical history significant for COPD, CHF, and left ventricular ejection fraction of 25-30%. He also has diabetes mellitus, peripheral artery disease, and chronic kidney disease stage 4, followed by Nephrology at the [facility]. He also has morbid obesity and presents to the hospital with complaints of shortness of breath, found to be in fluid overload, seen by Pulmonology and Cardiology, started on Bumex drip, feels better, and has good diuresis. PAST MEDICAL HISTORY: As I mentioned earlier. SOCIAL HISTORY: No alcohol abuse. Tobacco, he currently smokes every day. REVIEW OF SYSTEMS: Positive for symptoms as I mentioned earlier, otherwise negative. PHYSICAL EXAMINATION: GENERAL: He is awake and alert. VITAL SIGNS: Blood pressure 130/82, heart rate 83, and afebrile. HEENT: Pupils round. NECK: Fatty. LUNGS: With decreased air movements and few crackles at bases. CARDIOVASCULAR: Distant heart tones. ABDOMEN: Obese. LOWER EXTREMITIES: With edema. LABORATORY DATA: Hemoglobin is 12.1. Serum sodium 139, potassium 4.4, chloride 101, carbon dioxide 32, BUN 73, and creatinine 2.8. ASSESSMENT: 1. Acute kidney injury. Baseline creatinine around 2.5-2.4. 2. Acute kidney injury, most likely due to his congestive heart failure exacerbation. 3. Congestive heart failure exacerbation. 4. Chronic [place] [address] CONSULTATION Name: LAURIE MUIR Room: [address] IN ..#: [id number] Admission: 05/02/19 Attend Phys: Tim Pedraza Discharge: Date of : 46 Report #: [id number] 5. Diabetes mellitus type 2. 6. Peripheral artery disease. PLAN: Continue diuresing, but we will monitor his renal function very closely. Make sure we do not diurese him too rapidly. Follow his labs. Discussed the case with Dr. Breen. <ELECTRONICALLY SIGNED> By: Zane Younger MD 05/06/19 1020 1023 [id number] Younger MD /nt
--- NOTE | 2019-05-06 10:40 | NUR ---
ICU rounds: Pt refusing our food. Continue bumex gtt
--- NOTE | 2019-05-06 18:54 | NUR ---
PATIENT REMAINS IN ISOLATION STILL VOIDING COPIOUS SECRETIONS. DOES NOT LIKE OUR FOOD. REFUSED TO EAT BREAKFAST. REQUIRED JUICE AND SNACK TO RESOLVE LOW BLOOD SUGAR. PT WAS INFORMED THERE WOULD BE NO OUTSIDE FOOD OR ADDITIONAL DUE TO DIABETIC DIET. OTHERWISE PROGRESSING.
--- NOTE | 2019-05-06 23:36 | NUR ---
PATIENT WAS SITTING IN URINE AND DRIED STOOL AT START OF SHIFT. PATIENT WAS CLEANED AND LINENS WERE CHANGED. PATIENT DID REQUEST LEVY CATHETER TO BE PLACED HE IS UNABLE TO CONTROL HIS OWN BLADDER. ATTEMPTED TO PLACE LEVY AND WAS MET WITH RESISTANCE, RESULTING IN AN UNSUCCESSFUL PLACEMENT. MESSAGE SENT TO BUFFING MACHINE OPERATOR PHYSICIAN ABOUT THIS AND ORDERS OBTAINED TO CONSULT UROLOGY IN AM FOR CATHETER PLACEMENT.
[2019-05-07] VITALS (15 sets, daily range): BP systolic 42–156; BP diastolic 28–99
[2019-05-07 05:01] LABS: ALBUMIN 3.2 g/dL (3.4-5.0); CALCIUM 7.7 mg/dL (8.5-10.1); CREATININE 2.5 mg/dL (0.6-1.3); POTASSIUM 3.5 mmol/L (3.5-5.1); TOTAL BILIRUBIN 0.3 mg/dL (<0.1-1.0); TOTAL PROTEIN 6.1 g/dL (6.4-8.2)
--- NOTE | 2019-05-07 07:33 | NUR ---
PATIENT NONCOMPLIANT WITH PLAN OF CARE. DOES NOT FOLLOW FLUID RESTRICTION, BECOMES AGITATED AND HOSTILE WHEN SODAS AT BEDSIDE ARE TAKEN AWAY. PATIENT INCONTINENT OF BOWEL AND BLADDER, REPEATEDLY URINATES AND DEFECATES ON THE FLOOR AND IN THE BED. PATIENT WAS ON BIPAP FOR ABOUT 3 HOURS LAST NIGHT. REMAINS IN DROPLET PRECAUTIONS. NURSING STAFF SHAWNA
[2019-05-07 10:04] LABS: HEMATOCRIT 36.4 % (42.0-52.0); HEMOGLOBIN 12.1 gm/dL (14.0-18.0); MCHC 33.3 g/dL (28.0-37.0); MCV 84.1 fL (80.0-100.0); MPV 8.3 fl. (7.2-11.1); RBC 4.33 mil/uL (4.50-6.00); WBC 11.8 thou/uL (4.0-11.0)
--- NOTE | 2019-05-07 12:19 | NUR ---
THIS BRAKE ENGINEER ASSUMED CARE OF PT AT 0700 CLEANED PT UP CHANGED SHHETS CLEANED ROOM GOT PT UP TO CHAIR NO FEVERS BLOOD SUGAR [address] SRIVASTAVA GIVE JUICE WITH BREAKFAST AND HE WOULD DECREASE HIS LONG ACTING LANTUS RECHECK 96 PT STATED HE FELT BETTER UROLOGY CONSULTED PT CO BLADDER PAIN SCANNED OVER 500ML UROLOGY STATED URETHRA STRUCTURE DILATED AND ADVANCED PT TOLERATED WELL URINE RETURN YELLOW IN COLOR
--- NOTE | 2019-05-07 13:51 | NUR ---
ICU rounds: Tele status. Anticipate dc to home tomorrow. DELONTE spoke with Kendrick at the [facility], faxed updated bipap settings and they will have dtr come and berry picker bipap prior to Pt's dc tomorrow.
--- NOTE | 2019-05-07 23:41 | NUR ---
RECEIVED REPORT AND ASSUMED CARE OF PATIENT AT 1900. VSS. FULL ASSESSMENT COMPLETED CHARTED. BED LOCKED AND LOW POSITION. CALL LIGHT AND PERSONAL ITEMS IN REACH.
[2019-05-08] VITALS (18 sets, daily range): BP systolic 102–139; BP diastolic 54–103
--- NOTE | 2019-05-08 14:16 | NUR ---
DC orders written. Dtr not in agreement with dc, plan dc tomorrow. [facility], dtr scheduled to flower buncher or picker cpap today. DELONTE also informed [facility] of changed plan for Pt to dc tomorrow. Following.
--- NOTE | 2019-05-08 16:06 | NUR ---
PT IS A/O X4,VSS,DATA SOFTWARE ENGINEER IN PLACE.PT REMAINS ON 3L O2 NC.NO C/O PAIN.IV ANTIBIOTICS GIVEN.LEVY SECURE AND PATENT.PT PROGRESSING TOWARDS GOALS AND DOWNGRADED TO TELE STATUS.PT WORKED WITH ST BUT REFUSED TO ALL OF QUESTIONS OR FOR HER TO COME BACK.DROPLET PRECAUTIONS MAINTAINED.HOURLY ROUNDING COMPELTED FOR PT SAFETY.CALL LIGHT AND FALL PRECAUTIONS IN PLACE.WILL CONTINUE TO MONITOR FOR DURATION OF SHIFT.
[2019-05-08 16:21] LABS: CALCIUM 7.7 mg/dL (8.5-10.1); CREATININE 2.5 mg/dL (0.6-1.3); POTASSIUM 4.1 mmol/L (3.5-5.1)
--- NOTE | 2019-05-08 17:02 | NUR ---
PT TO TRANSFER TO ROOM 211.REPORT CALLED TO TOMAS HARMON AND ALL PERSONAL BELONGINGS PACKED TO TAKE WITH PT.PT INFORMED OF PLAN OF CARE.
--- NOTE | 2019-05-08 20:00 | NUR ---
RECIEVED REPORT AND ASSUMED CARE OF PT, ASSESSMENT COMPLETED. PT WEARING BIPAP BUT REQUESTING IT BE REMOVED, PLACED ON 3L/NC. NO SOB NOTED, HOB ELEVATED. FARZANEH LOWER LEGS WITH 3+ EDEMA, ENCOURAGE TO KEEP ELEVATED. ON FLUID RESTRICTIONS BUT NON-COMPLIANT. TELEMETRY ON SHOWING SR WITH 1ST AVB AND BBB. WILL CONT TO MONITOR AND ASSIST NEEDED.
[2019-05-09] VITALS: BP 134/65
[2019-05-09 04:00] VITALS: BP 121/61
[2019-05-09 04:55] LABS: CALCIUM 7.7 mg/dL (8.5-10.1); CREATININE 2.7 mg/dL (0.6-1.3); POTASSIUM 3.9 mmol/L (3.5-5.1)
--- NOTE | 2019-05-09 06:00 | NUR ---
AWAKE INTERMITTENT DURING NIGHT. PT NON-COMPLIANT WITH THIN LIQUIDS. DRINKING COKE AND THEN COUGHING WHILE SITTING UP. REFUSED BIPAP TONIGHT, O2 ON AT 3L/NC. NO CHANGE IN ASSESSMENT. HS GOALS OF REST AND SAFETY ACHIEVED. HOURLY ROUNDING OBSERVED. PT REMAINED IN DROPLET ISOLATION.
[2019-05-09 09:08] VITALS: BP 140/71
[2019-05-09] MEDS ORDERED: BUMETANIDE 1 MG1 M1 PO (12:04)
[2019-05-09] MEDS ORDERED: CARVEDILOL25 MG PO (12:06)
[2019-05-09] MEDS ORDERED: LIDODERM1 EACH TOP (12:23)
[2019-05-09] MEDS ORDERED: CIPRO250 M2 PO (12:25)
[2019-05-09] MEDS ORDERED: VALIUM5 MG PO (12:28)
--- NOTE | 2019-05-09 12:52 | NUR ---
cm faxed orders to alondra moreno w/ Natalia [phone]. pt dtridris notified and in agreement w/plan. idris will bring pt clothes and provide transportation home.
--- NOTE | 2019-05-09 14:26 | NUR ---
ASSUSMED CARE OF PT APPROX 0730. REASSESMENT COMPLETED CHARTED. MEDICATIONS GIVEN CHARTED. DISCUSSED CARE WITH CARDIAC REHAB NURSE, PHYSICAN AND CM. SAFTEY PRECAUTIONS UTILIZED. HOURLY ROUNDED. PICC LINE REMOVED IN LEFT UPPER ARM. ATTEMPTED TO MAKE FOLLOW UP APPOINTMENT WITH PTS PCP, NO RESPONSE RECIEVED FROM PCP. PT IS TO DC WITH HOME HEALTH. DISCHARGE TEACHING COMPLETED WITH PT, PT VERBALIZED UNDERSTANDING. PT TAKEN TO VEHICLE BY STAFF IN WHEELCHAIR.
[2019-05-10 06:07] LABS: ADENOVIRUS Negative (Negative); INFLUENZA A Negative (Negative); INFLUENZA B Negative (Negative); METAPNEUMOVIRUS Negative (Negative); PARAINFLUENZA 1 Negative (Negative); PARAINFLUENZA 2 Negative (Negative); PARAINFLUENZA 3 Negative (Negative); RHINOVIRUS Negative (Negative); RSV A Negative (Negative); RSV B Negative (Negative)
== END 2019-05-09 14:20 | disposition home health service (06) | DRG 871 ==
LOC: M.ERS 12:56 → M.2W 14:29 → M.TBA-ER 14:29 → M.ICU 14:29 → M.2W 21:08 → M.ICU 05-04 16:43 → M.2W 05-08 18:02
PROVIDERS: Family Medicine; Internal Medicine Cardiovascular Disease; Internal Medicine Nephrology; Internal Medicine Pulmonary Disease; ADMIT Internal Medicine
PROC: 5A09357 Assistance with Respiratory Ventilation, Less than 24 Consecutive Hours, Continuous Positive Airway Pressure (ICD-10-PCS; principal; 2019-05-02)
PROC: 5A09357 Assistance with Respiratory Ventilation, Less than 24 Consecutive Hours, Continuous Positive Airway Pressure (ICD-10-PCS; 2019-05-03)
PROC: 5A09357 Assistance with Respiratory Ventilation, Less than 24 Consecutive Hours, Continuous Positive Airway Pressure (ICD-10-PCS; 2019-05-04)
PROC: 5A09357 Assistance with Respiratory Ventilation, Less than 24 Consecutive Hours, Continuous Positive Airway Pressure (ICD-10-PCS; 2019-05-05)
PROC: 5A09357 Assistance with Respiratory Ventilation, Less than 24 Consecutive Hours, Continuous Positive Airway Pressure (ICD-10-PCS; 2019-05-06)
PROC: 5A09357 Assistance with Respiratory Ventilation, Less than 24 Consecutive Hours, Continuous Positive Airway Pressure (ICD-10-PCS; 2019-05-07)
PROC: 5A09357 Assistance with Respiratory Ventilation, Less than 24 Consecutive Hours, Continuous Positive Airway Pressure (ICD-10-PCS; 2019-05-08)
PROC: 5A09357 Assistance with Respiratory Ventilation, Less than 24 Consecutive Hours, Continuous Positive Airway Pressure (ICD-10-PCS; 2019-05-09)
DX: A41.9 Sepsis, unspecified organism (principal); I50.43 Acute on chronic combined systolic (congestive) and diastolic (congestive) heart failure; I21.A1 Myocardial infarction type 2; J15.9 Unspecified bacterial pneumonia; J96.21 Acute and chronic respiratory failure with hypoxia; N17.9 Acute kidney failure, unspecified; I13.0 Hypertensive heart and chronic kidney disease with heart failure and stage 1 through stage 4 chronic kidney disease, or unspecified chronic kidney disease; R65.20 Severe sepsis without septic shock; G47.33 Obstructive sleep apnea (adult) (pediatric); E66.9 Obesity, unspecified; Z66 Do not resuscitate; I25.5 Ischemic cardiomyopathy; I25.10 Atherosclerotic heart disease of native coronary artery without angina pectoris; E11.22 Type 2 diabetes mellitus with diabetic chronic kidney disease; N18.3 Chronic kidney disease, stage 3 (moderate); E11.51 Type 2 diabetes mellitus with diabetic peripheral angiopathy without gangrene; E66.01 Morbid (severe) obesity due to excess calories; F17.210 Nicotine dependence, cigarettes, uncomplicated; E11.65 Type 2 diabetes mellitus with hyperglycemia; R30.0 Dysuria; N35.919 Unspecified urethral stricture, male, unspecified site; M54.9 Dorsalgia, unspecified; G89.29 Other chronic pain; J43.9 Emphysema, unspecified; Z95.5 Presence of coronary angioplasty implant and graft; Z79.4 Long term (current) use of insulin; Z79.899 Other long term (current) drug therapy; Z79.82 Long term (current) use of aspirin; Z88.1 Allergy status to other antibiotic agents; Z88.5 Allergy status to narcotic agent; Z88.8 Allergy status to other drugs, medicaments and biological substances; Z99.81 Dependence on supplemental oxygen; Z79.01 Long term (current) use of anticoagulants; Z68.38 Body mass index [BMI] 38.0-38.9, adult

== ENCOUNTER 2019-05-15 09:26 | Emergency (ER) | payer OTHER ==
[~2019-05-15] VITALS: Ht 167.6 cm; Wt 108.4 kg
[~2019-05-15 09:26] MED LIST changes: +BUMETANIDE 1 MG1 M1 PO; +CARVEDILOL25 MG PO; +CIPRO250 M2 PO; +LIDODERM1 EACH TOP; +VALIUM5 MG PO
[2019-05-15 10:14] LABS: HEMOGLOBIN 12.7 gm/dL (14.0-18.0); NUCLEATED RBCS 0 /100WBC; WBC 15.2 thou/uL (4.0-11.0)
[2019-05-15 10:16] LABS: HEMATOCRIT 38.6 % (42.0-52.0); MCH 27.7 pg (26.0-34.0); MCHC 32.8 g/dL (28.0-37.0); MCV 84.5 fL (80.0-100.0); MPV 8.1 fl. (7.2-11.1); PLATELET COUNT* 214 thou/uL (150-400); RBC 4.57 mil/uL (4.50-6.00); RDW-CV 15.3 % (10.5-14.5)
[2019-05-15 10:23] LABS: CALCIUM 8.5 mg/dL (8.5-10.1); CREATININE 2.2 mg/dL (0.6-1.3); POTASSIUM 4.6 mmol/L (3.5-5.1)
[2019-05-15 10:29] LABS: PROTIME 9.9 Seconds (9.20-11.50)
[2019-05-15 10:33] LABS: ALBUMIN 3.1 g/dL (3.4-5.0); TOTAL BILIRUBIN 0.6 mg/dL (<0.1-1.0); TOTAL PROTEIN 6.4 g/dL (6.4-8.2)
[2019-05-15 10:43] LABS: ABSOLUTE LYMPHOCYTES 1.8 thou/uL (0.8-5.3); ABSOLUTE MONOCYTES 1.5 thou/uL (0.0-1.2); ABSOLUTE NEUTROPHILS 11.9 thou/uL (1.6-8.1); PLATELET ESTIMATE ADEQUATE
--- NOTE | 2019-05-15 11:10 | EKG ---
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: [facility] : 1950 Requested By: Violette Pat Order Number: [id number] MD: Calos Hutchinson Measurements Intervals Norman Rate: 79 P: 58 LA: 223 QRS: 2 QRSD: 112 T: 119 QT: 355 QTc: 407 Interpretive Statements Sinus rhythm septal q waves Ventricular trigeminy Prolonged LA interval Borderline intraventricular conduction delay Low voltage, extremity and precordial leads Baseline wander in lead(s) V2 Compared to ECG 05/02/2019 13:01:48 Ventricular premature complex(es) now present First degree AV block now present Sinus tachycardia no longer present Early repolarization no longer present Electronically Signed On 05-15-2019 11:09:06 CDT by Calos Hutchinson [email or web address] <ELECTRONICALLY SIGNED> By: Calos Hutchinson MD, FAC 05/15/19 1109 1016 1016 Calos Hutchinson MD, [facility] /EPI
--- NOTE | 2019-05-15 14:30 | NUR ---
ORDER RECEIVED FROM DR HUIZAR RE: POSSIBLE ADMIT AND CONCERNS. SPOKE WITH TOMAS IN ER. MADE AWARE THAT THE [facility] HAD LEFT A VMAIL EARLIER TODAY RE: PT. ALSO THAT PT WAS DC'D HOME WITH JOYCE CONWAY ON 05/08 AND DTR WAS TO GET A BIPAP FOR HIM AT [place]. CALL TO PENNY/MICHELLE, SHE CALLED BACK AND WAS TRANSFERRED TO THE ER TO TALK WITH OR TOMAS. ALSO PLACED CALL TO LOLY/JOYCE TO SEE IF THEY WERE ABLE TO SEE PT AT HOME. SHE CALLED BACK AND STATED NURSE SAW PT AND WAS ASKED TO LEAVE AFTER HE FIRED HIS DTR WHO WAS HIS CAREGIVER AND WAS UPSET WITH PETRA AND CALLED POLICE. WILL FOLLOW AND ASSIST REQUESTED BY ER
[2019-05-15 15:54] VITALS: BP 121/69
--- NOTE | 2019-05-16 11:04 | NUR ---
RECEIVED CALL FROM RONIT/[facility] PCP OFFICE REQUESTING CLINICAL FROM ER VISIT YESTERDAY FOR TO REVIEW. FAXED INFO TO [phone]
== END 2019-05-15 15:58 | disposition left against medical advice (07) ==
LOC: M.ERS 09:26
PROVIDERS: Personal Emergency Response Attendant
DX: I11.0 Hypertensive heart disease with heart failure (principal); I50.9 Heart failure, unspecified; R79.89 Other specified abnormal findings of blood chemistry; E11.9 Type 2 diabetes mellitus without complications; E66.9 Obesity, unspecified; J44.9 Chronic obstructive pulmonary disease, unspecified; Z68.38 Body mass index [BMI] 38.0-38.9, adult; Z95.5 Presence of coronary angioplasty implant and graft; Z79.4 Long term (current) use of insulin; Z88.1 Allergy status to other antibiotic agents; Z88.6 Allergy status to analgesic agent; Z88.8 Allergy status to other drugs, medicaments and biological substances